=== PATIENT | female | born 1955 | race Caucasian/White ===

== ENCOUNTER → 2017-12-23 08:51 | Outpatient (CLI) | payer MEDICARE, SELFPAY | PROVIDERS: PCP Nurse Practitioner Family; Visit Provider Surgery | DX: L98.9 Disorder of the skin and subcutaneous tissue, unspecified (principal) | CPT/HCPCS: 11402 ==

== ENCOUNTER → 2017-12-23 14:41 | Outpatient (REF) | payer MEDICARE, SELFPAY ==
--- NOTE | 2017-12-23 14:00 | SKI_PTH ---
PATIENT: JAQUI BERNARD LOC: [facility] U#:[id number] AGE/SX: 69/F ROOM: RE12/23/[address]: Sandra Alvarez MD : [id number] BED: DIS: SPEC #: [id number] RECD: 12/23/17 17:27 STATUS: JAMES JOHNSON #: [id number] LUIS CARLOS: 12/23/17 14:[address]: Sandra Alvarez DEPT: Surgical Specimen RECD BY: Sonia Chowdhury ENTERED: 12/23/17 17:28 SP TYPE: LEILA MA DR: Olimpia Taveras Tissues: 1 - SKIN BIOPSY(SHAVE/PUNCH) Procedures: SKIN LEVEL 4 Comments: [id number]
== END ==
LOC: LBN 14:41
PROVIDERS: PCP Nurse Practitioner Family; Visit Provider Surgery
DX: L82.1 Other seborrheic keratosis (principal)
CPT/HCPCS: 88305

== ENCOUNTER 2018-01-12 16:17 | Outpatient (REF) | payer MEDICARE, SELFPAY ==
[2018-01-12 21:03] LABS: Abs Immature Grans 0.04 k/cumm (0.0-0.09); Absolute Basophil Count 0.03 k/cumm (0.0-0.2); Absolute Eosinophil Count 0.12 k/cumm (0.0-0.7); Absolute Lymphocyte Count 1.24 k/cumm (1.2-3.4); Absolute Monocyte Count 0.88 k/cumm (0.11-0.7); Absolute Neutrophil Count 7.27 k/cumm (1.2-6.7); Basophils % 0.3; Eosinophils % 1.3; HCT 43.7 % (36.0-46.0); HGB 14.8 g/dL (12.0-15.5); Immature Grans % 0.4; Lymphocytes % 12.9; Mean Corp. HGB Concentration 33.9 g/dL (32.0-36.0); Mean Corpuscular Volume 103.3 fL (80-95); Mean Platelet Volume 11.9 fL (8.0-11.0); Monocytes % 9.2; Neutrophils % 75.9; Platelet Count 196 x1000/uL (130-400); RBC 4.23 m/cumm (4.00-5.20); RBC Distribution Width 13.5 % (11.7-14.6); White Blood Cell Count 9.58 k/cumm (4.4-10.8)
[2018-01-12 21:26] LABS: Iron 89 ug/dL (50-175); Total Iron Binding Capacity 307 ug/dL (250-450); Transferrin Sat 29 % (15-50)
[2018-01-12 21:37] LABS: Ferritin 85 ng/mL (8-388)
== END 2018-01-12 16:37 ==
LOC: NCHCN 16:17
PROVIDERS: PCP Nurse Practitioner Family; Visit Provider Nurse Practitioner Family
DX: G60.9 Hereditary and idiopathic neuropathy, unspecified (principal); M54.5 Low back pain; E61.1 Iron deficiency; E27.9 Disorder of adrenal gland, unspecified; R60.0 Localized edema; R53.83 Other fatigue; R42 Dizziness and giddiness; F17.200 Nicotine dependence, unspecified, uncomplicated
CPT/HCPCS: 82728; 83540; 83550; 85025

== ENCOUNTER 2018-02-09 15:29 | Outpatient (REF) | payer MEDICARE, SELFPAY ==
[2018-02-11 10:49] LABS: Syphilis Serology (RPR) Negative (Negative)
[2018-02-11 11:02] LABS: HSV Type 1 Ab, IgG Positive; HSV Type 2 Ab, IgG Negative; Varicella IgG Antibody Positive
[2018-02-11 12:19] LABS: HBs Antibody, Quant <3.1 mIU/mL; Hepatitis B Surface Ab Negative
[2018-02-11 12:35] LABS: Hepatitis A IgM Ab Negative (Negative)
[2018-02-11 13:32] LABS: Hepatitis B Surface Ag Negative (NEGAT)
[2018-02-11 13:41] LABS: HIV-1/2 Ag & Ab Screen Negative (NEGAT)
[2018-02-11 13:42] LABS: Hepatitis C Ab w Rflx HCV PCR Negative (NEGAT)
== END 2018-02-09 15:49 ==
LOC: NCHCN 15:29
PROVIDERS: PCP Nurse Practitioner Family; Visit Provider Nurse Practitioner Family
DX: R42 Dizziness and giddiness (principal); E27.9 Disorder of adrenal gland, unspecified; Z11.59 Encounter for screening for other viral diseases; Z11.4 Encounter for screening for human immunodeficiency virus [HIV]; Z01.84 Encounter for antibody response examination
CPT/HCPCS: 86706; 86787; 86803; 87340; 87389; 86592; 86695; 86696; 86709

== ENCOUNTER 2018-03-23 12:50 | Emergency (ER) | payer MEDICARE, SELFPAY ==
[2018-03-23 12:37] VITALS: BP 159/88; PULSE 73; RESP 18; TEMP 37.2; O2SAT 98
--- NOTE | 2018-03-23 13:01 | W.ED.GENAD ---
Discharge Plan Disposition Patient Disposition: HOME Condition: Stable Discharge Details Chief Complaint: Anxiety Clinical Impression: Hypertension, Chronic pain of lower extremity, bilateral Reason For Visit: estrada Primary Care Provider: Olimpia Taveras ED Provider: Yazmin Quesada Home Meds and New Rx's Prescriptions: Continue methylphenidate HCl [Ritalin SR] 20 MG tablet extended release 2 tab PO DAILY RF: 0 inhalational spacing device [Space Chamber Plus] 1 EACH spacer 1 ea Miscellaneous PRN Qty: 1 RF: 0 aspirin [Aspir-81] 81 MG tablet,delayed release (DR/EC) 81 mg PO DAILY Qty: 90 RF: 3 clonazepam 0.5 MG tablet,disintegrating 1 mg PO TID RF: 0 fluticasone [Flonase] 16 GM spray,suspension 2 spry NS BID Qty: 1 RF: 6 lactulose [Enulose] 10 GM/15 ML solution 15 ml PO daily prn Qty: 1 RF: 4 atorvastatin 40 MG tablet 40 mg PO DAILY RF: 0 fluticasone [Flovent HFA] 12 GM HFA aerosol inhaler 110 mcg Inhalation BID RF: 0 lisinopril 10 MG tablet 20 mg PO DAILY RF: 0 multivitamin 1 EACH capsule 1 cap PO DAILY RF: 0 naproxen sodium [Aleve] 220 MG tablet 220 mg PO PRN PRNRF: 0 omeprazole 40 MG capsule,delayed release(DR/EC) 40 mg PO DAILY RF: 0 topiramate 50 MG tablet 1 tab PO BID RF: 0 escitalopram oxalate [Lexapro] 20 MG tablet 20 mg PO DAILY RF: 0 potassium chloride 10 MEQ capsule, extended release 10 meq PO DAILY RF: 0 ferrous sulfate 325 MG tablet 325 mg PO DAILY RF: 0 albuterol sulfate [Ventolin HFA] 200 PUFF HFA aerosol inhaler 2 puff Inhalation Q6H PRN PRNRF: 0 mirtazapine [Remeron] 15 MG tablet 7.5 mg PO HS RF: 0 nystatin (bulk) 1 EACH powder 1 ea Miscellaneous DIRECTED PRNRF: 0 famotidine [Pepcid] 20 MG tablet 20 mg PO DAILY RF: 0 loratadine [Claritin Liqui-Gel] 10 MG capsule 2 tab PO DAILY AM RF: 0 magnesium oxide 500 mg Tablet 1,000 mg PO DAILY RF: 0 cholecalciferol (vitamin D3) 2,000 unit Capsule 2,000 unit PO DAILY RF: 0 peg 400-propylene glycol [Systane Gel] 0.4-0.3 % Drops,Gel 1 applic ophthalmic (eye) BID RF: 0 Discontinued naproxen sodium [Aleve] 220 MG capsule 220 mg PO BID RF: 0 Discharge Instructions Instructions: Chronic Pain (ED), Hypertension (ED) Additional Instructions: Please return immediately to the emergency department if you develop any new or worsening symptoms or if you become otherwise concerned. It is extremely important that you make an appointment to be seen by your primary care doctor within the next week in follow-up for this visit. Referrals: Olimpia Taveras [Primary Care Provider] - Discharge Data Discharge Date/Time-TO BE ENTERED AT DEPARTURE: 03/23/18 17:35 Medical Decision Making Christal Rogers is a 62-year-old woman with history of anxiety, bipolar, COPD, GERD, hypertension, obstructive sleep apnea presenting to the emergency department with a symptomatic high blood pressure from her PCPs office, also with chronic lower extremity pain, headache. On exam patient is well and nontoxic appearing. She has a nonfocal neuro exam. There is no abdominal tenderness. Benign cardiopulmonary exam. Hypertension improved in the emergency department spontaneously. Doubt hypertensive emergency at this point. Plan for EKG, screening labs. Exam/history not consistent with hypertensive encephalopathy or other acute intracranial process. Labs nondiagnostic. EKG with diffuse T wave inversions, unchanged from prior. Patient reporting multiple social issues including problem with housing. Plan for consult with care management. Lengthy discussion with patient regarding return to emergency department cautions and reports of outpatient follow-up with her PCP within a week. Patient is amenable to the plan. Medical Records Medical records reviewed: Yes I reviewed the patient's medical records. Lab Data Lab results reviewed: Yes I reviewed the patient's lab results. Laboratory Tests Range/Units 03/23/18 03/23/18 14:40 14:40 WBC (4.4-10.8) k/cumm 9.82 RBC (4.00-5.20) m/cumm 4.05 Hgb (12.0-15.5) g/dL 13.6 Hct (36.0-46.0) % 41.8 MCV (80-95) fL 103.2 H MCH (27.0-33.0) pg 33.6 H MCHC (32.0-36.0) g/dL 32.5 RDW (11.7-14.6) % 12.7 Plt Count (130-400) x1000/uL 218 MPV (8.0-11.0) fL 10.8 Immature Gran % 0.2 Neutrophils % 80.9 Lymphocytes % 12.5 Monocytes % 5.4 Eosinophils % 0.6 Basophils % 0.4 Absolute Neutrophils (1.2-6.7) k/cumm 7.94 H Absolute Lymphocytes (1.2-3.4) k/cumm 1.23 Absolute Monocytes (0.11-0.7) k/cumm 0.53 Absolute Eosinophils (0.0-0.7) k/cumm 0.06 Absolute Basophils (0.0-0.2) k/cumm 0.04 Sodium (136-145) mmol/L 145 Potassium (3.5-5.1) mmol/L 3.6 Chloride (98-107) mmol/L 111 H Carbon Dioxide (21.0-32.0) mmol/L 24.7 Anion Gap (3-11) mmol/L 9.3 BUN (7-18) mg/dL 10 Creatinine (0.55-1.02) mg/dL 0.93 Estimated GFR/1.73 m2 (mL/min/1.73m2) >= 60.00 Glucose (70-100) mg/dL 100 Calcium (8.5-10.1) mg/dL 9.2 Total Bilirubin (0.2-1.0) mg/dL 0.5 AST (15-37) U/L 21 ALT (12-78) U/L 36 Alkaline Phosphatase (46-116) U/L 74 Troponin I (0.00-0.06) ng/mL < 0.02 Total Protein (6.4-8.2) g/dL 6.7 Albumin (3.4-5.0) g/dL 4.1 ECG Data Attestation: I personally reviewed and interpreted this ECG (s) as follows: Interpretation: EKG shows normal sinus rhythm at 73 with 6 normal axis, diffuse T wave inversions present on prior 2017, no STEMI HPI General Mode of arrival: EMS. Date/Time Provider Initiated Documentation: 03/23/18 13:01. Limitations to Documentation: no limitations. Information obtained by: patient, RN notes reviewed and old records reviewed. HPI Narrative: Christal Rogers is a 62-year-old woman with history of COPD, GERD, hypertension, anxiety, sleep apnea, status post bilateral hip and bilateral knee replacements presenting to the emergency room with high blood pressure. Patient reports that she was seen today at her PCPs office for a regular well check. At that visit she was found to be hypertensive 190/100, and was sent to the emergency department for this. Patient reports that she had no acute complaints today. Patient reports that she has chronic pain in both hips and both knees after having them both replaced in the past. This is been going on for years. Patient also reports a history of chronic headaches, and today's experiencing what of her chronic headaches. It is not the worst headache of her life, and is same in quality, location, and severity as her typical headaches. She denies chest pain, abdominal pain, or back pain. No fevers, nausea/vomiting/diarrhea, rash, weakness, numbness, tingling, shortness of breath, cough. Related Data Home Medications Medication Instructions Recorded Confirmed aspirin [Aspir-81] 81 mg PO DAILY #90 tab-cap 02/09/14 03/23/18 inhalational spacing device [Space #1 02/09/14 Chamber Plus] methylphenidate HCl [Ritalin SR] 2 tab PO DAILY 02/09/14 03/23/18 clonazepam 1 mg PO TID tab-cap 07/13/14 03/23/18 fluticasone [Flonase] 2 spry NS BID #1 spray 07/20/14 03/23/18 lactulose [Enulose] 15 ml PO daily prn #1 bottle 07/20/14 03/23/18 multivitamin 1 cap PO DAILY 02/01/15 03/23/18 atorvastatin 40 mg PO DAILY tab-cap 06/27/16 03/23/18 fluticasone [Flovent HFA] 110 mcg INHALATION BID inhaler 06/27/16 03/23/18 naproxen sodium [Aleve] 220 mg PO PRN PRN 07/10/16 11/10/17 omeprazole 40 mg PO DAILY 07/10/16 03/23/18 topiramate 1 tab PO BID 07/10/16 03/23/18 escitalopram oxalate [Lexapro] 20 mg PO DAILY 03/27/17 11/24/17 ferrous sulfate 325 mg PO DAILY 03/27/17 03/23/18 potassium chloride 10 meq PO DAILY 03/27/17 03/23/18 famotidine [Pepcid] 20 mg PO DAILY 03/31/17 03/23/18 loratadine [Claritin Liqui-Gel] 2 tab PO DAILY AM 03/31/17 11/24/17 lisinopril 20 mg PO DAILY tab-cap 05/16/17 03/23/18 albuterol sulfate [Ventolin HFA] 2 puff INHALATION Q6H PRN PRN 11/04/17 03/23/18 mirtazapine [Remeron] 7.5 mg PO HS 11/04/17 11/04/17 nystatin (bulk) 1 ea MISCELLANEOUS DIRECTED PRN 11/04/17 03/23/18 cholecalciferol (vitamin D3) 2,000 unit PO DAILY 03/23/18 03/23/18 magnesium oxide 1,000 mg PO DAILY 03/23/18 03/23/18 peg 400-propylene glycol [Systane 1 applic OPHTHALMIC (EYE) BID 03/23/18 03/23/18 Gel] Allergies Allergy/AdvReac Type Severity Reaction Status Date / Time aripiprazole [From Abilify] Allergy Severe lethargic Unverified 03/23/18 14:28 mirtazapine [From Remeron] Allergy Severe Swelling/Ed Unverified 03/23/18 14:28 elen latex Allergy Intermediate Skin Rash Unverified 03/23/18 14:28 celecoxib [From Celebrex] AdvReac Intermediate feet Unverified 03/23/18 14:28 swelling duloxetine HCl AdvReac Intermediate leg Unverified 03/23/18 14:28 [From Cymbalta] swelling tiotropium AdvReac Intermediate chest pain Unverified 03/23/18 14:28 [From Spiriva with HandiHaler] General Stated Complaint: Anxiety MARILYNN: 3 Review of Systems Review of Systems Constitutional: denies fevers Eyes: denies eye pain ENT: denies facial pain, dental pain, sore throat Cardiovascular: denies chest pain, edema Respiratory: denies SOB, cough GI: denies abdominal pain, vomiting, diarrhea : denies flank pain MSK: denies back pain, neck pain, reports chronic hip and knee pain, unchanged Skin: denies rash Neuro: denies lightheadedness, weakness, reports chronic HAs Exam Narrative Exam Narrative: Constitutional: well and [id number], pleasant, conversing normally HENT: head atraumatic, normocephalic normal inspection, mucous membranes moist Eyes: conjunctiva normal, sclera normal, pupils 3mm b/l ERRLA, EOMI Neck: no stridor, normal ROM, trachea midline Chest: normal inspection Resp: normal work of breathing, LCTAB Cardio: normal rate, normal rhythm, no murmur appreciated GI: abdomen soft, non-tender, non-distended Back: normal inspection, no rash Skin: warm, dry, normal color, no rash Neuro: alert, not altered, health information specialist 2-12 intact, motor 5/5 throughout, normal tone Ext: no edema Psych: normal mood, normal affect, normal behavior Course Vital Signs Temperature 37.2 C 03/23/18 12:37 Pulse 73 03/23/18 12:37 Respiratory Rate 18 03/23/18 12:37 Blood Pressure 159/88 H 03/23/18 12:37 Pulse Oximetry 98 03/23/18 12:37 Temperature 37.2 C 03/23/18 12:37 Temperature Source Temporal Artery Scan 03/23/18 12:37 Pulse 73 03/23/18 12:37 Respiratory Rate 18 03/23/18 12:37 Respiratory Effort 03/23/18 12:43 Blood Pressure 159/88 H 03/23/18 12:37 Blood Pressure Position Sitting 03/23/18 12:37 Pulse Oximetry 98 03/23/18 12:37 Pain Level 10 03/23/18 12:37
[2018-03-23 14:21] VITALS: RESP 24
[2018-03-23 14:49] LABS: Abs Immature Grans 0.02 k/cumm (0.0-0.09); Absolute Basophil Count 0.04 k/cumm (0.0-0.2); Absolute Eosinophil Count 0.06 k/cumm (0.0-0.7); Absolute Lymphocyte Count 1.23 k/cumm (1.2-3.4); Absolute Monocyte Count 0.53 k/cumm (0.11-0.7); Absolute Neutrophil Count 7.94 k/cumm (1.2-6.7); Basophils % 0.4; Eosinophils % 0.6; HCT 41.8 % (36.0-46.0); HGB 13.6 g/dL (12.0-15.5); Immature Grans % 0.2; Lymphocytes % 12.5; Mean Corp. HGB Concentration 32.5 g/dL (32.0-36.0); Mean Corpuscular Hemoglobin 33.6 pg (27.0-33.0); Mean Corpuscular Volume 103.2 fL (80-95); Mean Platelet Volume 10.8 fL (8.0-11.0); Monocytes % 5.4; Neutrophils % 80.9; Platelet Count 218 x1000/uL (130-400); RBC 4.05 m/cumm (4.00-5.20); RBC Distribution Width 12.7 % (11.7-14.6); White Blood Cell Count 9.82 k/cumm (4.4-10.8)
[2018-03-23 15:11] LABS: ALT 36 U/L (12-78); AST 21 U/L (15-37); Albumin 4.1 g/dL (3.4-5.0); Alkaline Phosphatase 74 U/L (46-116); Anion Gap 9.3 mmol/L (3-11); BUN 10 mg/dL (7-18); Bilirubin, Total 0.5 mg/dL (0.2-1.0); CO2 24.7 mmol/L (21.0-32.0); CREATININE 0.93 mg/dL (0.55-1.02); Calcium 9.2 mg/dL (8.5-10.1); Chloride 111 mmol/L (98-107); Glucose 100 mg/dL (70-100); Potassium 3.6 mmol/L (3.5-5.1); Sodium 145 mmol/L (136-145); Total Protein 6.7 g/dL (6.4-8.2)
[2018-03-23 15:12] LABS: Troponin I < 0.02 ng/mL (0.00-0.06)
[2018-03-23 16:47] VITALS: BP 146/68; PULSE 96; RESP 18; TEMP 37.1; O2SAT 99
--- NOTE | 2018-03-23 17:28 | PDOC.ERCMPRO ---
- If Service Date Differs Date of service: 03/23/18 Time of Service: 17:28 Care Management Progress Note CM paged at 1630 with request to meet with Christal in the ER. Patient transfered to ER from PCPs office via EMS with reported HTN and anxiety. Christal is having difficulties with her living situation and her mental health providers. Christal has community supports through [facility] ([facility]) and [facility] [employer]. CM listened to Christal's concerns for an hour. CM will follow up with [facility] and [facility] in the morning. Christal would like to see Dr. Soria as opposed to the two therapists she is seeing through [facility]. CM will inquire into this issue as well and phone Christal following those calls. Christal's phone number is [phone]. - MH Services (Omit if N/A) Current MH Services: [facility]
[2018-03-23 17:34] VITALS: BP 146/68; PULSE 96; RESP 18; TEMP 37.1; O2SAT 99
--- NOTE | 2018-03-23 17:38 | CMPROGNOTE_ITS ---
- If Service Date Differs Date of service: 03/23/18 Time of Service: 17:28 Care Management Progress Note CM paged at 1630 with request to meet with Christal in the ER. Patient transfered to ER from PCPs office via EMS with reported HTN and anxiety. Christal is having difficulties with her living situation and her mental health providers. Christal has community supports through [email or web address] ([facility]) and [facility] [employer]. CM listened to Christal's concerns for an hour. CM will follow up with [facility] and [facility] in the morning. Christal would like to see Dr. Soria as opposed to the two therapists she is seeing through [facility]. CM will inquire into this issue as well and phone Christal following those calls. Christal's phone number is [phone]. - MH Services (Omit if N/A) Current MH Services: [facility]
== END 2018-03-23 17:35 | disposition home or self-care (01) ==
PROVIDERS: Emergency Provider Student in an Organized Health Care Education/Training Program; PCP Nurse Practitioner Family
DX: I10 Essential (primary) hypertension (principal); M79.604 Pain in right leg; M79.605 Pain in left leg; G89.29 Other chronic pain; Z96.643 Presence of artificial hip joint, bilateral; Z96.653 Presence of artificial knee joint, bilateral; R51 Headache; Z59.9 Problem related to housing and economic circumstances, unspecified; Z63.8 Other specified problems related to primary support group; J44.9 Chronic obstructive pulmonary disease, unspecified; F17.210 Nicotine dependence, cigarettes, uncomplicated
CPT/HCPCS: 36415; 80053; 93005; 99283; 84484; 85025; 93010

== ENCOUNTER 2018-03-27 17:55 | Emergency (ER) | payer MEDICARE, SELFPAY ==
[2018-03-27] VITALS (39 sets, daily range): BP systolic 97–147; BP diastolic 38–98; PULSE 58–81; RESP 11–24; TEMP 37.2; O2SAT 94–99
--- NOTE | 2018-03-27 18:13 | DI.RAD_ITS ---
SYMPTOM/DIAGNOSIS: SHORTNESS OF BREATH, R/O ACUTE DISEASE PA AND LATERAL CHEST: Comparison is made with 31 Mar 2017. The heart is enlarged, unchanged. The lungs are well inflated and clear. No infiltrate or effusion is seen. There is no evidence of pneumothorax or pulmonary edema. IMPRESSION: No acute abnormality.
[2018-03-27] MEDS: LORazepam 2 MG/ML VIAL 1 MG IVP (18:30)
[2018-03-27 18:32] LABS: Abs Immature Grans 0.03 k/cumm (0.0-0.09); Absolute Basophil Count 0.03 k/cumm (0.0-0.2); Absolute Eosinophil Count 0.09 k/cumm (0.0-0.7); Absolute Lymphocyte Count 1.39 k/cumm (1.2-3.4); Absolute Monocyte Count 0.72 k/cumm (0.11-0.7); Absolute Neutrophil Count 7.99 k/cumm (1.2-6.7); Basophils % 0.3; Eosinophils % 0.9; HCT 42.9 % (36.0-46.0); HGB 13.9 g/dL (12.0-15.5); Immature Grans % 0.3; Lymphocytes % 13.6; Mean Corp. HGB Concentration 32.4 g/dL (32.0-36.0); Mean Corpuscular Hemoglobin 33.2 pg (27.0-33.0); Mean Corpuscular Volume 102.4 fL (80-95); Neutrophils % 77.9; Platelet Count 224 x1000/uL (130-400); RBC 4.19 m/cumm (4.00-5.20); RBC Distribution Width 12.9 % (11.7-14.6); White Blood Cell Count 10.25 k/cumm (4.4-10.8)
--- NOTE | 2018-03-27 18:39 | ED.GENADUL_ITS ---
Discharge Plan Disposition Patient Disposition: HOME Condition: Good Discharge Details Chief Complaint: Chest Pain Clinical Impression: Dyspnea, Headache, Anxiety, Neck pain Primary Care Provider: Olimpia Taveras ED Provider: Elpidio Yao [place] Meds and New Rx's Prescriptions: Continue methylphenidate HCl [Ritalin SR] 20 MG tablet extended release 2 tab PO DAILY RF: 0 inhalational spacing device [Space Chamber Plus] 1 EACH spacer 1 ea Miscellaneous PRN Qty: 1 RF: 0 aspirin [Aspir-81] 81 MG tablet,delayed release (DR/EC) 81 mg PO DAILY Qty: 90 RF: 3 clonazepam 0.5 MG tablet,disintegrating 1 mg PO TID RF: 0 fluticasone [Flonase] 16 GM spray,suspension 2 spry NS BID Qty: 1 RF: 6 lactulose [Enulose] 10 GM/15 ML solution 15 ml PO daily prn Qty: 1 RF: 4 atorvastatin 40 MG tablet 40 mg PO DAILY RF: 0 fluticasone [Flovent HFA] 12 GM HFA aerosol inhaler 110 mcg Inhalation BID RF: 0 lisinopril 10 MG tablet 20 mg PO DAILY RF: 0 multivitamin 1 EACH capsule 1 cap PO DAILY RF: 0 naproxen sodium [Aleve] 220 MG tablet 220 mg PO PRN PRNRF: 0 omeprazole 40 MG capsule,delayed release(DR/EC) 40 mg PO DAILY RF: 0 topiramate 50 MG tablet 1 tab PO BID RF: 0 escitalopram oxalate [Lexapro] 20 MG tablet 20 mg PO DAILY RF: 0 potassium chloride 10 MEQ capsule, extended release 10 meq PO DAILY RF: 0 ferrous sulfate 325 MG tablet 325 mg PO DAILY RF: 0 albuterol sulfate [Ventolin HFA] 200 PUFF HFA aerosol inhaler 2 puff Inhalation Q6H PRN PRNRF: 0 mirtazapine [Remeron] 15 MG tablet 7.5 mg PO HS RF: 0 nystatin (bulk) 1 EACH powder 1 ea Miscellaneous DIRECTED PRNRF: 0 famotidine [Pepcid] 20 MG tablet 20 mg PO DAILY RF: 0 loratadine [Claritin Liqui-Gel] 10 MG capsule 2 tab PO DAILY AM RF: 0 magnesium oxide 500 mg Tablet 1,000 mg PO DAILY RF: 0 cholecalciferol (vitamin D3) 2,000 unit Capsule 2,000 unit PO DAILY RF: 0 peg 400-propylene glycol [Systane Gel] 0.4-0.3 % Drops,Gel 1 applic ophthalmic (eye) BID RF: 0 Discharge Instructions Instructions: Dyspnea (ED), Anxiety (ED), General Headache (ED) Additional Instructions: Consider decreasing your clonazepam to twice daily. Call your primary care doctor for follow-up appointment for reevaluation. Return immediately to the emergency department with any worsening or new concerning symptoms. We will have care management return call/follow up with you Friday. Referrals: Care Management [Provider Group] Olimpia Taveras [Primary Care Provider] - Discharge Data Discharge Date/Time-TO BE ENTERED AT DEPARTURE: 03/27/18 23:13 Discharge Physician: Oly Kang Medical Decision Making <Oly Kang DO - Last Filed: 03/27/18 20:24> 62-year-old female with history of hypertension, anxiety, bipolar, OCD, PTSD who presents with headache, neck pain, clenching her jaw, and shortness of breath. Patient was seen here 3 days ago for similar complaint and sent here by PCP for symptomatic hypertension and had EKG and labs which were unremarkable and she was discharged home. Patient her blood pressure at [facility] tonight which was 198/96 and she became nervous and short of breath and came to the ED. She is also decreased her clonazepam from 1 mg 3 times daily to 0.5 mg 3 times daily 1 week ago. She has also recently stopped her Ritalin over the past few days. EKG notes a rate of 67, sinus, T wave inversion in 1, 2, 3, aVF, V3 through V6 which is been seen in previous EKG. No acute ST elevation. QTc 405. QRS 100. Patient appears very anxious, tearful, and irritated and anxious with asking questions. It is possible that her symptoms earlier this week and today are due to her recent decrease in clonazepam causing anxiety. Due to patient's age and history of hypertension, will check a CT head, cardiac workup including labs and chest x-ray and give a dose of Ativan. 1953 -- Labs reviewed and unremarkable. WBC, Hgb, electrolytes, creatinine and troponin within normal limits. CXR and CT head negative. Patient appears much more calm and relaxed, she denies any chest pain or left arm pain. She still complaining of mild bilateral neck pain and headache. Patient states she has not eaten anything today. Headache and jaw pain appears likely consistent with tension as she has been clenching her jaw as well as possibly due to stress and anxiety as she becomes tearful and anxious when she talks about it. She is overwhelmed with any questioning of her meds. No fever or meningeal signs. Will give a dose of Toradol, tray of food, and plan for second troponin at 930pm 1999 -- case endorsed to Dr. Yao to f/u on pt response to toradol and second troponin. If second troponin negative, and patient remained stable, okay for discharge home to follow-up with her primary care doctor. HPI <Oly Kang DO - Last Filed: 03/27/18 20:24> General Mode of arrival: ambulatory . Date/Time Provider Initiated Documentation: 03/27/18 18:09 . Limitations to Documentation: no limitations . Information obtained by: patient . HPI Narrative: Patient is a 8-year-old female with a history of anxiety, bipolar disorder, OCD and PTSD who presents for headache and neck pain for the past 3 days, and shortness of breath tonight that occurred after [facility]. Pt admits to L arm pain as well tonight but denies any chest pain. She denies fever cough. Patient states he has recently been taken off her Remeron, Lexapro and Latuda due to making her OCD and PTSD worse. Patient states her primary care doctor also decreased her Klonopin from 1 mg 3 times daily to 0.5 mg 3 times daily because the patient thought it was causing nausea. Patient was seen here 3 days ago for symptomatic hypertension with headache and had screening labs and EKG which were unremarkable and she was discharged home. Related Data Home Medications Medication Instructions Recorded Confirmed aspirin [Aspir-81] 81 mg PO DAILY #90 tab-cap 02/09/14 03/23/18 inhalational spacing device [Space #1 02/09/14 Chamber Plus] methylphenidate HCl [Ritalin SR] 2 tab PO DAILY 02/09/14 03/23/18 clonazepam 1 mg PO TID tab-cap 07/13/14 03/23/18 fluticasone [Flonase] 2 spry NS BID #1 spray 07/20/14 03/23/18 lactulose [Enulose] 15 ml PO daily prn #1 bottle 07/20/14 03/23/18 multivitamin 1 cap PO DAILY 02/01/15 03/23/18 atorvastatin 40 mg PO DAILY tab-cap 06/27/16 03/23/18 fluticasone [Flovent HFA] 110 mcg INHALATION BID inhaler 06/27/16 03/23/18 naproxen sodium [Aleve] 220 mg PO PRN PRN 07/10/16 11/10/17 omeprazole 40 mg PO DAILY 07/10/16 03/23/18 topiramate 1 tab PO BID 07/10/16 03/23/18 escitalopram oxalate [Lexapro] 20 mg PO DAILY 03/27/17 11/24/17 ferrous sulfate 325 mg PO DAILY 03/27/17 03/23/18 potassium chloride 10 meq PO DAILY 03/27/17 03/23/18 famotidine [Pepcid] 20 mg PO DAILY 03/31/17 03/23/18 loratadine [Claritin Liqui-Gel] 2 tab PO DAILY AM 03/31/17 11/24/17 lisinopril 20 mg PO DAILY tab-cap 05/16/17 03/23/18 albuterol sulfate [Ventolin HFA] 2 puff INHALATION Q6H PRN PRN 11/04/17 03/23/18 mirtazapine [Remeron] 7.5 mg PO HS 11/04/17 11/04/17 nystatin (bulk) 1 ea MISCELLANEOUS DIRECTED PRN 11/04/17 03/23/18 cholecalciferol (vitamin D3) 2,000 unit PO DAILY 03/23/18 03/23/18 magnesium oxide 1,000 mg PO DAILY 03/23/18 03/23/18 peg 400-propylene glycol [Systane 1 applic OPHTHALMIC (EYE) BID 03/23/18 Gel] Allergies Allergy/AdvReac Type Severity Reaction Status Date / Time aripiprazole [From Abilify] Allergy Severe lethargic Unverified 03/23/18 14:28 mirtazapine [From Remeron] Allergy Severe Swelling/Ed Unverified 03/23/18 14:28 elen latex Allergy Intermediate Skin Rash Unverified 03/23/18 14:28 celecoxib [From Celebrex] AdvReac Intermediate feet Unverified 03/23/18 14:28 swelling duloxetine HCl AdvReac Intermediate leg Unverified 03/23/18 14:28 [From Cymbalta] swelling tiotropium AdvReac Intermediate chest pain Unverified 03/23/18 14:28 [From Spiriva with HandiHaler] General MARILYNN: 3 Review of Systems <Oly Kang DO - Last Filed: 03/27/18 20:24> Review of Systems All systems reviewed & are unremarkable except as noted in HPI and below Constitutional Denies chills, Denies excessive sweating, Denies fatigue, Denies fever(s), Reports headache(s), Denies weakness and Denies weight loss Eyes Reports system reviewed and no additional complaints, except as docu and Denies blurry vision ENT Denies vertigo, Denies dizziness, Denies otalgia, Reports headache(s), Denies nasal congestion, Denies sore throat and Denies throat swelling Cardiovascular Denies chest pain, Denies syncope, Denies rapid heart rate and Reports dyspnea Respiratory Reports dyspnea Gastrointestinal Denies abdominal pain, Denies diarrhea and Denies vomiting Genitourinary Denies hematuria, Denies dysuria and Denies flank pain Musculoskeletal Denies back pain and Denies joint swelling Integumentary/Breasts Denies lesions and Denies rash Neurologic Denies behavioral changes, Denies confusion, Denies vertigo, Denies dizziness, Denies syncope, Reports headache(s) and Denies weakness Psychiatric Denies behavioral changes, Denies confusion and Denies depression Endocrine Denies excessive sweating and Denies fatigue Hematologic/Lymphatic Denies easy bruising and Denies lymphadenopathy Allergic/Immunologic Denies throat swelling Exam <Oly Kang DO - Last Filed: 03/27/18 20:24> Const General: cooperative and healthy appearing Orientation: alert and awake [facility] Head: normal to inspection Ears: hearing grossly normal bilaterally and external ears normal General nose exam: external nose normal Face and sinus: normal facial exam Mouth: oral mucosae normal Eyes General: appearance normal, both eyes and all related structures Eyelids: eyelids normal Pupils: PERRL EOM: EOM intact bilaterally Neck Neck: normal visual inspection Lymphatic: no lymphadenopathy noted Chest Chest: normal inspection of the chest Resp Effort & Inspection: normal respiratory effort and able to speak in complete sentences Auscultation: clear to auscultation bilaterally Cardio Rate: regular rate Rhythm: regular rhythm GI Inspection: normal to inspection Palpation: soft, not firm, no guarding, no hepatosplenomegaly, no masses and nontender Auscultation: normal bowel sounds Skin General skin exam: no rashes or lesions noted Neuro General: alert, awake and oriented x3 Cranial Nerves: CN's II-XI intact bilaterally Cognition: normal cognition Speech: speech normal Gait: normal gait Motor: muscle tone normal throughout and strength 5/5 throughout Sensory Exam: no sensory deficits noted Extrem General: normal to inspection, full ROM, normal capillary refill and no edema Psych Appearance: grossly normal Mental Status: mental status grossly normal Speech and Movement: speech and movement normal Affect: normal affect Thought Process: normal Sign Out <Oly Kang DO - Last Filed: 03/27/18 20:24> Sign Out Data: Sign Out Comment: f/u on second troponin and pt response to toradol for headache and neck pain Last updated by Oly Kang DO at 03/27/18 20:22 Post-Handoff Eval: Patient signed out to me pending second troponin and EKG. She had been seen here on Friday and again tonight for elevated blood pressures, shortness of breath. She had some arm discomfort tonight. Patient did eat and got medications and feels better. Dr. Kang felt most likely this is related to anxiety. Patient tells me she is working on finding a new psychiatric provider because she does not like being on all the medications. Her second troponin is negative. Repeat EKG is unchanged and is sinus rhythm at a rate of 63 with T wave inversions that have been present previously. Patient asking that care management follows up with her as they were supposed to after her Friday visit. I will place her back on care management list. Refer to primary care for further medication management while waiting for new psychiatric provider.
--- NOTE | 2018-03-27 18:40 | DI.CT_ITS ---
SYMPTOM/DIAGNOSIS: HEADACHE, R/O ACUTE DISEASE NONCONTRAST HEAD CT: No intracranial hemorrhage, mass or infarct is seen. There is no evidence of skull fracture. The ventricles are normal in size. No sinus or mastoid air cell opacification seen. IMPRESSION: Negative head CT.
[2018-03-27 18:52] LABS: ALT 37 U/L (12-78); AST 17 U/L (15-37); Albumin 4.3 g/dL (3.4-5.0); Alkaline Phosphatase 73 U/L (46-116); BUN 15 mg/dL (7-18); Bilirubin, Total 0.4 mg/dL (0.2-1.0); CREATININE 0.85 mg/dL (0.55-1.02); Calcium 9.4 mg/dL (8.5-10.1); Chloride 108 mmol/L (98-107); Glucose 97 mg/dL (70-100); Potassium 3.6 mmol/L (3.5-5.1); Sodium 145 mmol/L (136-145)
[2018-03-27 18:54] LABS: Troponin I < 0.02 ng/mL (0.00-0.06)
--- NOTE | 2018-03-27 18:58 | DI.VRAD_ITS ---
EXAM: CT Head Without Intravenous Contrast EXAM DATE/TIME: 03/27/2018 6:41 PM CLINICAL HISTORY: 62 years old, female; Signs and symptoms; Altered mental status/memory loss; Confusion or disorientation; Patient HX: Anxiety TECHNIQUE: Axial computed tomography images of the head/brain without intravenous contrast. Coronal and sagittal reformatted images were created and reviewed. COMPARISON: No relevant prior studies available. FINDINGS: No evidence of hemorrhage. No mass effect. No acute intracranial abnormality. IMPRESSION: No evidence of acute intracranial process. Dictated and Authenticated by: Shiraz Melvin MD. Ordering:MEGHA LIPSCOMB MD
--- NOTE | 2018-03-27 18:59 | DI.VRAD_ITS ---
EXAM: XR Chest, 2 Views EXAM DATE/TIME: 03/27/2018 6:14 PM CLINICAL HISTORY: 62 years old, female; Signs and symptoms; Shortness of breath TECHNIQUE: XR of the chest, 2 views. COMPARISON: CR CHEST 2 VIEWS PA,LAT 03/31/2017 4:41 PM FINDINGS: The lung dickens are clear bilaterally. No focal pulmonary consolidation is present. The cardiac silhouette is within normal limits. The costophrenic angles are sharp. The bony structures appear unremarkable with prior surgical fixation of lower cervical spine. IMPRESSION: No evidence of acute cardiopulmonary disease. Dictated and Authenticated by: Shiraz Melvin MD. Ordering:MEGHA LIPSCOMB MD
[2018-03-27] MEDS: Ketorolac 30 MG/ML VIAL IVP (20:10)
[2018-03-27 21:57] LABS: Troponin I < 0.02 ng/mL (0.00-0.06)
--- NOTE | 2018-03-27 23:19 | NUR.NOTE ---
Nursing Note: Pt seems exasperated upon review of discharge instructions. Pt repeatedly asking if this is all. This scribe asked if there was something else that she needed or if she had any questions. She stated no. Did inquire if she should continue taking her methylphenidate as she has not been taking for a few days. Clarified this with MD and as she has an appt with PCP on Friday it was determined she could go a couple more days this weekend without the dosing and clarify with the prescribing doctor.
--- NOTE | 2018-03-28 13:10 | PDOC.ERCMPRO ---
- If Service Date Differs Date of service: 03/28/18 Time of Service: 13:10 Care Management Progress Note CM placed follow up call to Christal to follow up recent ED visit. Christal states she continues to be very anxious and she is afraid she is going to stroke out. She feels that her anxiety escalation is due to recent medications changes by Sheila Mcmillan APRN provider and her loss of her medical marijuana card. She states she met with a CM earlier in the week that was going to try and get her in with and transition from [facility]. CM explained to patient that sometimes has a long waiting list and that she should continue to stay with [facility] until a transition can be coordinated. Christal does have supports through [facility], and chronic home health aide caregiver at [facility]. CM to fax a request for wrap around services and team meeting to [employer] and follow up with for transition of mental health services is appropriate. CM was encouraged to outreach her community support including whiting can worker through [facility]. CM provided contact information for [facility] crisis and request that Christal call if she is feeling anxious or needs support related to her mental health. Christal should continue to be referred back to [facility] for ongoing mental health needs, until other provider is identified. Christal agrees with the plan. CM provided update of contact to the ED.
--- NOTE | 2018-03-28 13:22 | CMPROGNOTE_ITS ---
- If Service Date Differs Date of service: 03/28/18 Time of Service: 13:10 Care Management Progress Note CM placed follow up call to Christal to follow up recent ED visit. Christal states she continues to be very anxious and she is afraid she is going to stroke out. She feels that her anxiety escalation is due to recent medications changes by Sheila Mcmillan APRN provider and her loss of her medical marijuana card. She states she met with a CM earlier in the week that was going to try and get her in with and transition from [facility]. CM explained to patient that sometimes has a long waiting list and that she should continue to stay with [facility] until a transition can be coordinated. 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 CM to fax a request for wrap around services and team meeting to [facility] [employer] and follow up with for transition of mental health services is appropriate. CM was encouraged to outreach her community support including rollway worker through [facility]. CM provided contact information for [facility] crisis and request that Christal call if she is feeling anxious or needs support related to her mental health. Christal should continue to be referred back to [facility] for ongoing mental health needs, until other provider is identified. Christal agrees with the plan. CM provided update of contact to the ED.
== END 2018-03-27 23:13 | disposition home or self-care (01) ==
PROVIDERS: Physician Assistant; Emergency Provider Emergency Medicine; PCP Nurse Practitioner Family
DX: F41.9 Anxiety disorder, unspecified (principal); R51 Headache; M54.2 Cervicalgia; R00.0 Tachycardia, unspecified; J44.9 Chronic obstructive pulmonary disease, unspecified; F17.210 Nicotine dependence, cigarettes, uncomplicated; I10 Essential (primary) hypertension
CPT/HCPCS: 36415; 80053; 93005; 96374; 96375; 99285; 70450; 71046; 83735; 84484; 85025; 93010; J1885; J2060

== ENCOUNTER 2018-04-08 02:39 | Outpatient (CLI) | payer MEDICARE, SELFPAY | END 2018-04-08 02:59 | PROVIDERS: PCP Nurse Practitioner Family | DX: R13.11 Dysphagia, oral phase (principal); K08.409 Partial loss of teeth, unspecified cause, unspecified class | CPT/HCPCS: 92610; G8996 ==

== ENCOUNTER 2018-04-22 00:37 | Outpatient (CLI) | payer MEDICARE, SELFPAY ==
--- NOTE | 2018-04-22 11:20 | DI.RAD_ITS ---
SYMPTOMS/DIAGNOSIS: TORITO KNEE PAIN, M25.569, LT HIP PAIN, M25.552, RT HIP PAIN, M25.551 LEFT KNEE: The patient is status post TKR. The prosthesis in good positioning and surrounding bone intact. There is no evidence of a fracture or dislocation. I could not entirely exclude a small joint effusion. RIGHT KNEE: The prosthesis is intact and surrounding bone well maintained. There is no evidence of a superimposed fracture or dislocation. The knee is not flexed and I could not exclude a small joint effusion. BILATERAL HIPS: The patient is status post bilateral THR. The prostheses in good position and surrounding bone intact. There has been no interval change when compared with images dating back to 12/21/13 and on today's study there is no evidence of a fracture or dislocation.
== END 2018-04-22 00:57 ==
PROVIDERS: PCP Nurse Practitioner Family; Visit Provider Nurse Practitioner Family
DX: M25.561 Pain in right knee (principal); M25.562 Pain in left knee; M25.552 Pain in left hip; M25.551 Pain in right hip; Z96.653 Presence of artificial knee joint, bilateral; Z96.643 Presence of artificial hip joint, bilateral
CPT/HCPCS: 73521; 73562

== ENCOUNTER → 2018-05-13 12:58 | Outpatient (BNVA) | payer MEDICARE, SELFPAY | PROVIDERS: PCP Nurse Practitioner Family; Referring Provider Nurse Practitioner Family; Visit Provider Student in an Organized Health Care Education/Training Program | DX: M23.8X2 Other internal derangements of left knee (principal); M25.561 Pain in right knee; M25.562 Pain in left knee; G89.29 Other chronic pain; Z96.653 Presence of artificial knee joint, bilateral; Z96.643 Presence of artificial hip joint, bilateral; M70.61 Trochanteric bursitis, right hip; Z59.9 Problem related to housing and economic circumstances, unspecified; J44.9 Chronic obstructive pulmonary disease, unspecified; I10 Essential (primary) hypertension; F17.210 Nicotine dependence, cigarettes, uncomplicated | CPT/HCPCS: 20610; 99204; 99215; L1820; J1040 ==

== ENCOUNTER 2018-06-03 05:18 | Outpatient (CLI) | payer MEDICARE, SELFPAY ==
--- NOTE | 2018-06-03 11:04 | DI.MAMMO_ITS ---
SYMPTOM/DIAGNOSIS: SCREENING, Z12.39 MAMMOGRAMS: Mammograms were interpreted according to the usual protocol including computer analysis with CAD system, tomosynthesis and C view imaging. The breasts are of moderate density with fairly symmetrical distribution of fibroglandular tissue. No dominant mass or clumped microcalcification is identified in either breast. Current examination is compared with the previous examinations including June 2016 and there has been no gross interval change in appearance in comparison with the previous studies. CONCLUSION: No specific evidence of malignancy at this time. Routine screening examinations are suggested at yearly intervals in this age group according to the ACS/ACR guidelines. Category 1, breast density category B. MQSA ASSESSMENT OF FINDINGS: Negative. Category 1. Patient will receive a letter notifying them of these results. BI-RADS category B. There are scattered areas of fibroglandular density.
== END 2018-06-03 05:38 ==
PROVIDERS: PCP Nurse Practitioner Family; Visit Provider Nurse Practitioner Family
DX: Z12.31 Encounter for screening mammogram for malignant neoplasm of breast (principal)
CPT/HCPCS: 77063; 77067

== ENCOUNTER 2018-06-12 00:47 | Outpatient (CLI) | payer MEDICARE, SELFPAY ==
[2018-06-12 10:16] LABS: CREATININE 1.09 mg/dL (0.55-1.02)
[2018-06-12] MEDS: Omnipaque 350 MG/ML 100 ML BTL IJ (10:31)
--- NOTE | 2018-06-12 10:50 | DI.CT_ITS ---
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 Images obtained through the lung bases are unremarkable. No renal or adrenal calcification identified. The previously noted peripheral nodular enhancing hepatic lesions including caudate lobe lesion measuring up to about 8.5 cm in diameter appear unchanged in comparison with previous examination of 03/31/17. No new hepatic or splenic mass identified. No biliary dilatation and gallbladder is CT normal. The pancreas appears normal. A small right renal cyst is again noted. The right adrenal is unremarkable in appearance. The left adrenal contains two rounded masses, on transaxial imaging these measure respectively about 31 x 21 mm in diameter and about 14 x 14 mm in diameter and unchanged in size and appearance in comparison with previous examination of 03/31/17. No abdominal adenopathy seen. CONCLUSION: Stable appearance of presumably benign adrenal and hepatic lesions since 03/31/17.
== END 2018-06-12 01:07 ==
PROVIDERS: PCP Nurse Practitioner Family; Visit Provider Internal Medicine Endocrinology, Diabetes & Metabolism
DX: D35.02 Benign neoplasm of left adrenal gland (principal); K76.9 Liver disease, unspecified; Z13.89 Encounter for screening for other disorder
CPT/HCPCS: 36415; 74170; 82565; J3490

== ENCOUNTER 2018-06-18 12:44 | Outpatient (REF) | payer MEDICARE, SELFPAY ==
[2018-06-18 15:06] LABS: HCT 41.1 % (36.0-46.0); HGB 12.8 g/dL (12.0-15.5); Mean Corp. HGB Concentration 31.1 g/dL (32.0-36.0); Mean Corpuscular Hemoglobin 32.2 pg (27.0-33.0); Mean Corpuscular Volume 103.5 fL (80-95); Mean Platelet Volume 11.9 fL (8.0-11.0); Platelet Count 181 x1000/uL (130-400); RBC 3.97 m/cumm (4.00-5.20); RBC Distribution Width 12.4 % (11.7-14.6); White Blood Cell Count 8.05 k/cumm (4.4-10.8)
[2018-06-18 16:20] LABS: Vitamin B12 498 pg/mL (193-986)
[2018-06-19 13:17] LABS: IgA 107 mg/dL (85-499); Interpretation SEE COMMENTS; Tissue Transglutaminase IgA <1.2 U/mL (<4.0)
[2018-06-20 11:50] LABS: Thiamine (Vitamin B1), WB 110 nmol/L (70-180)
== END 2018-06-18 13:04 ==
LOC: NCHCN 12:44
PROVIDERS: PCP Nurse Practitioner Family; Visit Provider Nurse Practitioner Family
DX: N89.8 Other specified noninflammatory disorders of vagina (principal); D75.89 Other specified diseases of blood and blood-forming organs; R42 Dizziness and giddiness; K21.9 Gastro-esophageal reflux disease without esophagitis; G47.62 Sleep related leg cramps; J44.9 Chronic obstructive pulmonary disease, unspecified; K58.9 Irritable bowel syndrome, unspecified; G60.9 Hereditary and idiopathic neuropathy, unspecified
CPT/HCPCS: 36415; 82784; 83516; 85027; 82607; 84425; 87480; 87510; 87660

== ENCOUNTER → 2018-07-27 09:40 | Outpatient (BNVA) | payer MEDICARE, SELFPAY | PROVIDERS: PCP Nurse Practitioner Family; Referring Provider Nurse Practitioner Family; Visit Provider Student in an Organized Health Care Education/Training Program | DX: M70.61 Trochanteric bursitis, right hip (principal); M25.561 Pain in right knee; G89.29 Other chronic pain; Z96.653 Presence of artificial knee joint, bilateral; M70.51 Other bursitis of knee, right knee; M25.562 Pain in left knee | CPT/HCPCS: 20610; 99213; J1040 ==

== ENCOUNTER 2018-08-04 01:28 | Outpatient (CLI) | payer MEDICARE, SELFPAY ==
--- NOTE | 2018-08-04 13:04 | DI.CTLCSR_ITS ---
SYMPTOMS/DIAGNOSIS: TOBACCO ABUSE, F17.200, CIGARETTE SMOKER, F17.210, SCREENING FOR LUNG CA CHEST CT: A low dose screening chest CT was performed. There are no pleural-based or intrapulmonary areas of nodularity. Allowing for the absence of contrast material, there is no evidence of adenopathy. There is no pleural effusion. The heart is not enlarged. There is no pericardial effusion. There is nothing to suggest an aortic aneurysm. SUMMARY: No pulmonary nodules are identified. Follow-up surveillance with a repeat chest CT in 12 months is recommended. Lung-RAD Category: Category 1- Negative Lung-RAD Management of Findings: Continue annual LDCT screening in 12 months
== END 2018-08-04 01:48 ==
PROVIDERS: PCP Nurse Practitioner Family; Visit Provider Nurse Practitioner Family
DX: Z12.2 Encounter for screening for malignant neoplasm of respiratory organs (principal); F17.210 Nicotine dependence, cigarettes, uncomplicated
CPT/HCPCS: G0297

== ENCOUNTER 2018-08-13 00:28 | Outpatient (CLI) | payer MEDICARE, SELFPAY ==
--- NOTE | 2018-08-13 14:59 | DI.MRI_ITS ---
SYMPTOMS/DIAGNOSIS: LEFT HIP PAIN, M25.552, RIGHT HIP PAIN, M25.551, LOW BACK PAIN, M54.5 LUMBOSACRAL SPINE MRI: MRI examination of the lumbosacral spine was performed according to the usual protocol. There is a bilateral L5 spondylolysis with spondylolisthesis of L5 on S1 estimated at 25% of the vertebral width. There is bilateral neural foraminal narrowing at L5-S1. There is a moderate disc bulge without evidence of disc herniation. At L4-5, there is a disc bulge without evidence of focal disc herniation. Neural foramina appear fairly well maintained. Mild facet hypertrophy noted. At L3-4, there is a prominent disc bulge and prominence of the ligamentum flavum and facet articulations with resultant mild central canal spinal stenosis. No focal disc herniation. Neural foramina appear intact. At L2-3, there is prominence of the disc contour, left paracentral/left lateral suggesting mild disc herniation. This causes narrowing of the left lateral recess at this level. No definite neural impingement. At L1-2, there are no significant findings. The conus medullaris appears intact. CONCLUSION: 1. Mild central canal spinal stenosis at L4-5. 2. Bilateral neural foraminal narrowing secondary to spondylolysis/spondylolisthesis at L5-S1. 3. Mild left paracentral/left lateral disc herniation at L2-3.
== END 2018-08-13 00:48 ==
PROVIDERS: PCP Nurse Practitioner Family; Visit Provider Nurse Practitioner Family
DX: M25.552 Pain in left hip (principal); M25.551 Pain in right hip; M54.5 Low back pain; M48.061 Spinal stenosis, lumbar region without neurogenic claudication; M43.07 Spondylolysis, lumbosacral region; M43.17 Spondylolisthesis, lumbosacral region; M51.26 Other intervertebral disc displacement, lumbar region
CPT/HCPCS: 72148

== ENCOUNTER → 2018-08-18 09:18 | Outpatient (BNVA) | payer MEDICARE, SELFPAY | PROVIDERS: PCP Nurse Practitioner Family; Referring Provider Nurse Practitioner Family; Visit Provider Psychiatry & Neurology Neurology | DX: R51 Headache (principal); G43.009 Migraine without aura, not intractable, without status migrainosus; G44.40 Drug-induced headache, not elsewhere classified, not intractable; R20.2 Paresthesia of skin; R41.3 Other amnesia | CPT/HCPCS: 64405; 99205; 99215 ==

== ENCOUNTER → 2018-09-07 10:42 | Outpatient (BNVA) | payer MEDICARE, SELFPAY | PROVIDERS: PCP Nurse Practitioner Family; Referring Provider Nurse Practitioner Family; Visit Provider Student in an Organized Health Care Education/Training Program | DX: M70.61 Trochanteric bursitis, right hip (principal); M25.561 Pain in right knee; M25.562 Pain in left knee; G89.29 Other chronic pain; Z96.653 Presence of artificial knee joint, bilateral; M23.8X2 Other internal derangements of left knee; M43.17 Spondylolisthesis, lumbosacral region | CPT/HCPCS: 99213; 99214; L1812 ==

== ENCOUNTER 2018-09-21 11:50 | Outpatient (REF) | payer MEDICARE, SELFPAY ==
[2018-09-24 11:58] LABS: 6-monoacetylmorphine Not Detected ng/mL (Cutoff: 25); Amphetamines Negative ng/mL (Cutoff: 500); Barbiturates Negative ng/mL (Cutoff: 200); Benzodiazepines Negative ng/mL (Cutoff: 100); Buprenorphine Not Detected ng/mL (Cutoff: 5); Cocaine Negative ng/mL (Cutoff: 150); Codeine Not Detected ng/mL (Cutoff: 25); Comment Normal; Creatinine, U 28.3 mg/dL; Dihydrocodeine Not Detected ng/mL (Cutoff: 25); EDDP Not Detected ng/mL (Cutoff: 25); Fentanyl Not Detected ng/mL (Cutoff: 2); Hydrocodone Not Detected ng/mL (Cutoff: 25); Hydromorphone Not Detected ng/mL (Cutoff: 25); Hydromorphone-3-beta-glucuroni Not Detected ng/mL (Cutoff: 100); Meperidine Not Detected ng/mL (Cutoff: 25); Methadone Not Detected ng/mL (Cutoff: 25); Morphine Not Detected ng/mL (Cutoff: 25); N-desmethyltapentadol Not Detected ng/mL (Cutoff: 50); Naloxone Not Detected ng/mL (Cutoff: 25); Norbuprenorphine Not Detected ng/mL (Cutoff: 5); Norfentanyl Not Detected ng/mL (Cutoff: 2); Norhydrocodone Not Detected ng/mL (Cutoff: 25); Normeperidine Not Detected ng/mL (Cutoff: 25); Noroxycodone Not Detected ng/mL (Cutoff: 25); Noroxymorphone Not Detected ng/mL (Cutoff: 25); O-desmethyltramadol Not Detected ng/mL (Cutoff: 25); Phencyclidine Negative ng/mL (Cutoff: 25); Propoxyphene Not Detected ng/mL (Cutoff: 25); Specific Gravity 1.004; Tapentadol Not Detected ng/mL (Cutoff: 25); Tetrahydrocannabinol Negative ng/mL (Cutoff: 50); Tramadol Not Detected ng/mL (Cutoff: 25)
== END 2018-09-21 12:10 ==
LOC: LBN 11:50
PROVIDERS: PCP Nurse Practitioner Family; Visit Provider Nurse Practitioner Family
DX: Z79.899 Other long term (current) drug therapy (principal); M43.17 Spondylolisthesis, lumbosacral region; G89.29 Other chronic pain
CPT/HCPCS: 80307; 80364

== ENCOUNTER → 2018-09-30 08:01 | Outpatient (BNVA) | payer MEDICARE, SELFPAY | PROVIDERS: PCP Nurse Practitioner Family; Visit Provider Psychiatry & Neurology Neurology | DX: R51 Headache (principal); G43.109 Migraine with aura, not intractable, without status migrainosus; G44.40 Drug-induced headache, not elsewhere classified, not intractable; R41.3 Other amnesia; R20.2 Paresthesia of skin; G56.03 Carpal tunnel syndrome, bilateral upper limbs; G56.21 Lesion of ulnar nerve, right upper limb | CPT/HCPCS: 95911; 99214; L3908 ==

== ENCOUNTER 2018-10-05 16:34 | Outpatient (CLI) | payer MEDICARE, SELFPAY ==
[2018-10-05 17:37] LABS: Anion Gap 8.7 mmol/L (3-11); BUN 19 mg/dL (7-18); CO2 26.3 mmol/L (21.0-32.0); CREATININE 1.15 mg/dL (0.55-1.02); Calcium 9.5 mg/dL (8.5-10.1); Chloride 107 mmol/L (98-107); Estimated GFR 48.13 (mL/min/1.73m2); Glucose 142 mg/dL (70-100); Magnesium 2.1 mg/dL (1.8-2.4); Potassium 4.5 mmol/L (3.5-5.1); Sodium 142 mmol/L (136-145); TSH (W/Ref FT4) 1.62 uIU/mL (0.358-3.74)
[2018-10-05 17:39] LABS: Troponin I < 0.02 ng/mL (0.00-0.06)
== END 2018-10-05 16:54 ==
PROVIDERS: PCP Nurse Practitioner Family; Visit Provider Nurse Practitioner Family
DX: R07.89 Other chest pain (principal); G60.9 Hereditary and idiopathic neuropathy, unspecified; R60.0 Localized edema; I10 Essential (primary) hypertension; F17.200 Nicotine dependence, unspecified, uncomplicated; F41.8 Other specified anxiety disorders; G47.62 Sleep related leg cramps
CPT/HCPCS: 36415; 80048; 83735; 84443; 84484

== ENCOUNTER 2018-10-14 00:05 | Outpatient (CLI) | payer MEDICARE, SELFPAY ==
--- NOTE | 2018-10-14 08:45 | MERGEMPI_ITS ---
*[facility]* [address] [place] [address] Myocardial Perfusion Imaging - SPECT Regadenoson Date of study: 10/14/2018 *PATIENT PRESENTATION* Height: 160cm (63in) Blood Pressure: Weight: 75.9kg (167lb) BSA: 1.86m^2 Referring physician: Edouard Perez Ordering physician: Olimpia Taveras Aprn Impressions: Normal myocardial perfusion and contraction after pharmacological stress. Summary: 1. Myocardial perfusion imaging: No myocardial perfusion defects noted. 2. The calculated left ventricular ejection fraction after stress: 71%. LV global systolic function is normal. No left ventricular regional motion abnormality. 3. Stress ECG conclusions: The stress ECG is indeterminate due to baseline ST/T wave abnormality. 4. Baseline EC-3 mm T wave inversion in II, III, aVF, V3 to V6. 5. Imaging information: gated. Image quality reduced due to breast attenuation and subdiaphragmatic activity. Attenuation correction used. Indication: R07.89, Appropriate Use Criteria: M (May be appropriate). History: REASON FOR TESTING: DIFFICULT TO EVALUATE AT THIS TIME, BUT POSSIBLE ELEVATED BLOOD PRESSURE. PT CURRENTLY HAVING A PANIC ATTACK ON EVALUATION . 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 FAMILY HX:MOTHER- CAD, HYPERTENSION. FATHER- CAD, CARDIOMYOPATHY, HI. BROTHER-CARDIONYOPATHY, HYPERTENSION. SMOKING: CURRENT SMOKER 1/2 PPD, M45 YEARS PLUS. VAPES CBD. EXCERCISE: NO REGULAR EXCERCISE, TRIES TO WALK A LITTLE BIT EVERY DAY. Risk factors: Cholesterol: 225mg/dl. HDL: 131mg/dl. LDL: 52mg/dl. Triglycerides: 156mg/dl. ALLERGIES: LATEX,CITALOPRAM, ARIPIPRAZOLE, MIRTAZAPINE,CELECOXIB, DULOXETINE. MEDICATIONS: TOPIRIMATE 75 MG BID, SENNA-DOCUSATE 1 BID PRN,PSYLLIUM ORAL PACKET DAILY. POTASSIUM CHLORIDE 10 MEQ DAILY, OMEPRAZOLE 40 MG DAILY, NYSTATIN DIRECTED, NAPROXEN SOCIUM 220 MG BID, MULTIVITAMIN 1 DAILY, RITALIN SR 2 DAILY, MAGNESIUM OXIDE 500 MG DAILY, LORAZEPAM 1 MG TID, LISINOPRIL 40 MG DAILY, LACTULOSE 15 ML DAILY PRN, HYDROXIZINE HCL 25 MG TID. FLUTICASONE PROPIONATE 110 MCG 2 PUFFS BID, FLONASE 2 SPRAY BID, FAMOTIDINE 20 MF DAILY, DICLOFENAC 1% TOPICAL GEL QID, VIT D3 2,000 UNITS DAILY, BISACODYL 5 MG QOD, ATORVASTATIN 40 MG DAILY, ASPIRIN 81 MG DAILY, AMLODIPINE 2.5 MG DAILY, ALBUTEROL SULFATE 2 PUFFS Q6H RPN, ACETQAMINOPHEN 500 MG BID, SYSTANE GEL OPTHALMIC BID. Imaging Technique: Protocol: Regadenoson. Acquisition: Gated SPECT; 1 day - rest/stress. The patient was imaged in the supine position. Attenuation correction used. Isotope administration: - Rest. Tc[99m]-sestamibi. Dose: 9.5mCi. Injection time: 09:14 AM. Injection to stress time: 00:45. - Stress. Tc[99m]-sestamibi. Dose: 31.6mCi. Injection time: 11:30 AM. 1-2 min before end of exercise Baseline ECG: LAST EKG 03/25/18- SINUS RHYTHM, NONSPECIFIC ST DEPRESSION + EXCESSIVE T-ABNORMALITY. TODAY'S EKG- SINUS BRADYCARDIA, ABNORMAL T, WIDESPREAD. 2-3 mm T wave inversion in II, III, aVF, V3 to V6. Stress protocol: +--------+--+ + + !Stage !HR!BP (mmHg) !Comments ! +--------+--+ + + !Baseline!53!126/68 (87)! ! +--------+--+ + + !1 min !75!140/62 (88)!Inject Regadenoson.! +--------+--+ + + !3 min !82!128/60 (83)! ! +--------+--+ + + !6 min !79!120/60 (80)! ! +--------+--+ + + * Stress results: The rate-pressure product for the peak heart rate and blood pressure was 48347ra Hg/min. Stress ECG: PT VERY AGGITATED AND HAVING A PANIC ATTACK ON ARRIVAL. PT OFFERED THE OPPORTUNITY TO RESCHEDULE, BUT HAD INCREASED ANXIETY ABOUT RESCHEDULING, AND INSISTED THAT WE COMPLETE THIS TEST TODAY. LEXISCAN TESTING ENDED IN 6 MINS, 0 SECS, EFFECT OF MEDICATION NO LONGER PRESENT. MAX HR WAS 87, WITH A NORMAL BLOOD PRESSURE RESPONSE. ECTOPY: NONE NOTED. ANGINA: NO REPORTED CHEST PAIN OR PRESSURE. ISCHEMIA: NO ISCHEMIC CHANGES NOTED. The stress ECG is indeterminate due to baseline ST/T wave abnormality. Myocardial perfusion: Imaging information: gated. Image quality reduced due to breast attenuation and subdiaphragmatic activity. Left ventricular size is normal. No myocardial perfusion defects noted. Ventricular Function (Wall Motion): The calculated left ventricular ejection fraction after stress: 71%. LV global systolic function is normal. No left ventricular regional motion abnormality. Study data: Edouard Perez MD supervised and was readily available during the procedure. This study was interpreted by [facility]. Study status: Routine. Consent: The risks, benefits, and alternatives to the procedure were explained to the patient and informed consent was obtained. Procedure: Initial setup. A baseline ECG was recorded. Surface ECG leads and manual cuff blood pressure measurements were monitored. Heart sounds: Normal. Lung sounds: Normal. Regadenoson stress test. Stress testing was performed, with regadenoson by intravenous bolus, for a total dose of 0.4mgover 10.00sec, followed by a 5ml saline flush. The infusion was terminated due to per protocol. The patient was unable to exercise due to deconditioning and or frailty. Study completion: All catheters inserted during the procedure were removed. The patient tolerated the procedure well and was discharged from the lab. Discharge: The patient left the laboratory in stable condition. Birthdate: Patient birthdate: 1955. Sex: Gender: female. Study date: Study date: 10/14/2018. Study time: 00:01 AM. Signature Documentation: - The imaging portion of this study was interpreted by Nuclear Manager Winter Edouard Perez MD. - The Stress ECG portion of this study was interpreted by Edouard Perez MD. Electronically signed by Edouard Perez 10/14/2018 13:55
[2018-10-14] MEDS: Regadenoson 0.4 MG/5 ML SYR IVP (11:49)
== END 2018-10-14 00:25 ==
PROVIDERS: PCP Nurse Practitioner Family; Visit Provider Nurse Practitioner Family
DX: R07.89 Other chest pain (principal); R94.30 Abnormal result of cardiovascular function study, unspecified
CPT/HCPCS: 78452; 93016; 93018; 93017; 93225; J2785

== ENCOUNTER 2018-10-14 10:26 | Outpatient (CLI) | payer MEDICARE, SELFPAY | END 2018-10-14 10:46 | PROVIDERS: PCP Nurse Practitioner Family; Visit Provider Nurse Practitioner Family | DX: R07.89 Other chest pain (principal); I49.1 Atrial premature depolarization; I47.1 Supraventricular tachycardia | CPT/HCPCS: 93225 ==

== ENCOUNTER 2018-10-17 15:38 | Outpatient (CLI) | payer MEDICARE, SELFPAY ==
--- NOTE | 2018-10-19 12:43 | HOLTER_ITS ---
HOLTER MONITOR REPORT DATE OF DICTATION October 19, 2018 48-Hour Study Baseline rhythm sinus. Very frequent single PAC. Single burst SVT, 4 beat duration at 156 beats per minute. No atrial fibrillation. Rare single PVC. No VT. No significant bradycardia. SYMPTOMS Heavy breathing noted once during sinus rhythm, 109 beats per minute. Hot flash noted during sinus rhythm noted once during sinus rhythm, 68 beats per minute, deep T-wave inversions. Neck, ears, ringing noted once during sinus rhythm, 91 beats per minute. Heartburn noted once during sinus rhythm, 71 beats per minute, deep T-wave insertions. Average heart rate 71 beats per minute. Deep T wave inversions are noted intermittently throughout all leads, change from baseline. Unclear s ignificance. Consider ischemic evaluation if warranted. Jw Trinidad M.D. SLICK/divya T - 10/19/18
== END 2018-10-17 15:58 ==
PROVIDERS: PCP Nurse Practitioner Family; Visit Provider Nurse Practitioner Family
DX: R07.89 Other chest pain (principal); I49.1 Atrial premature depolarization; I47.1 Supraventricular tachycardia
CPT/HCPCS: 93226

== ENCOUNTER 2018-10-19 10:04 | Outpatient (CLI) | payer MEDICARE, SELFPAY | END 2018-10-19 10:24 | PROVIDERS: PCP Nurse Practitioner Family; Referring Provider Nurse Practitioner Family; Visit Provider Internal Medicine Interventional Cardiology | DX: R07.89 Other chest pain (principal); I49.1 Atrial premature depolarization; I47.1 Supraventricular tachycardia | CPT/HCPCS: 93227 ==

== ENCOUNTER 2018-10-20 09:45 | Outpatient (CLI) | payer MEDICARE, SELFPAY | END 2018-10-20 10:05 | PROVIDERS: PCP Nurse Practitioner Family; Visit Provider Psychiatry & Neurology Neurology | DX: R51 Headache (principal); G43.109 Migraine with aura, not intractable, without status migrainosus; G44.40 Drug-induced headache, not elsewhere classified, not intractable; R41.3 Other amnesia; G56.03 Carpal tunnel syndrome, bilateral upper limbs; G56.21 Lesion of ulnar nerve, right upper limb | CPT/HCPCS: 99213 ==

== ENCOUNTER → 2018-11-02 12:47 | Outpatient (BNVA) | payer MEDICARE, SELFPAY | PROVIDERS: PCP Nurse Practitioner Family; Referring Provider Nurse Practitioner Family; Visit Provider Student in an Organized Health Care Education/Training Program | DX: M75.81 Other shoulder lesions, right shoulder (principal); G56.21 Lesion of ulnar nerve, right upper limb; G56.03 Carpal tunnel syndrome, bilateral upper limbs; J44.9 Chronic obstructive pulmonary disease, unspecified; F17.210 Nicotine dependence, cigarettes, uncomplicated | CPT/HCPCS: 99214 ==

== ENCOUNTER 2018-11-16 10:24 | Outpatient (REF) | payer MEDICARE, SELFPAY ==
[2018-11-16 21:54] LABS: Abs Immature Grans 0.03 k/cumm (0.0-0.09); Absolute Basophil Count 0.03 k/cumm (0.0-0.2); Absolute Eosinophil Count 0.25 k/cumm (0.0-0.7); Absolute Lymphocyte Count 0.95 k/cumm (1.2-3.4); Absolute Monocyte Count 0.62 k/cumm (0.11-0.7); Absolute Neutrophil Count 6.44 k/cumm (1.2-6.7); Basophils % 0.4; HCT 40.7 % (36.0-46.0); HGB 13.8 g/dL (12.0-15.5); Immature Grans % 0.4; Lymphocytes % 11.4; Mean Corp. HGB Concentration 33.9 g/dL (32.0-36.0); Mean Corpuscular Hemoglobin 33.5 pg (27.0-33.0); Mean Corpuscular Volume 98.8 fL (80-95); Mean Platelet Volume 11.5 fL (8.0-11.0); Monocytes % 7.5; Neutrophils % 77.3; Platelet Count 224 x1000/uL (130-400); RBC 4.12 m/cumm (4.00-5.20); RBC Distribution Width 13.1 % (11.7-14.6); White Blood Cell Count 8.32 k/cumm (4.4-10.8)
[2018-11-16 22:01] LABS: Anion Gap 7.1 mmol/L (3-11); BUN 26 mg/dL (7-18); CO2 26.9 mmol/L (21.0-32.0); CREATININE 1.03 mg/dL (0.55-1.02); Calcium 9.5 mg/dL (8.5-10.1); Chloride 109 mmol/L (98-107); Estimated GFR 54.66 (mL/min/1.73m2); Glucose 88 mg/dL (70-100); Potassium 4.9 mmol/L (3.5-5.1); Sodium 143 mmol/L (136-145)
[2018-11-16 23:02] LABS: Hemoglobin A1C 5.6 % (4.5-6.2)
== END 2018-11-16 10:44 ==
LOC: NCHCN 10:24
PROVIDERS: PCP Nurse Practitioner Family; Visit Provider Specialist/Technologist Athletic Trainer
DX: R73.9 Hyperglycemia, unspecified (principal); I10 Essential (primary) hypertension; Z01.818 Encounter for other preprocedural examination; D75.89 Other specified diseases of blood and blood-forming organs
CPT/HCPCS: 80048; 83036; 85025

== ENCOUNTER 2018-11-26 09:55 | Outpatient (CLI) | payer MEDICARE, SELFPAY | END 2018-11-26 10:15 | PROVIDERS: PCP Nurse Practitioner Family; Visit Provider Student in an Organized Health Care Education/Training Program | DX: Z01.818 Encounter for other preprocedural examination (principal) ==

== ENCOUNTER 2018-12-01 07:53 | Day surgery (SDC) | payer MEDICARE, SELFPAY ==
[2018-11-26 10:15] VITALS: BP 111/67; PULSE 67; TEMP 37; O2SAT 99
[2018-12-01] VITALS (7 sets, daily range): BP systolic 124–152; BP diastolic 46–98; PULSE 68–79; RESP 14–23; TEMP 36.5–36.7; O2SAT 94–98
[2018-12-01] MEDS: Lactated Ringers 1,000 ML 80 ML IV (08:50)
[2018-12-01] MEDS: ceFAZolin 2 GM/50 ML BAG IVPB (10:55)
--- NOTE | 2018-12-01 11:13 | ANES_ITS ---
Date of service: 12/01/18 Time of Service: 09:40 Anesthesia Note Report Anesthesia Note: Went to complete preoperative assessment and anesthesia consent with patient. During brief interaction, patient verbalized hopelessness and does not feel she has quality of life nor a support system. A huddle between S[facility], [facility] disability case manager, and Dr. Spencer was held to address patient?s said concerns. A collective consensus was made to move forward with the surgery. It was felt in patient?s best interest to change anesthesia providers. Please see child care center administrator note.
--- NOTE | 2018-12-01 11:36 | PDOC.MHCN_ITS ---
Date of service: 12/01/18 Time of Service: 10:30 Mental Health Crisis Note Presenting Issue How did you arrive at the ED and why did you come: Client in day surgery for scheduled procedure. Precipitating Factors Client expressed SI to hospital staff and presented in an agitated state. Disposition BEHAVIOR: Client was in hospital bed, agitated but remained calm. EYE CONTACT: normal MOOD: anxious AFFECT: nervous APPETITE: N/A SLEEP(trouble falling/staying asleep: N/A Plan Hospital staff elected to proceed with surgery (as client preferred) so long as she could remain calm and have a rational discussion with staff and CEMENTING MACHINE OPERATOR outpatient case manager prior. Client claimed she never made comments about being better off or that the hospital would kill her with anesthesia. Stated she wanted to move forward with the surgery today and that her anxiety would always be present and was, in fact, improved. Signature Clinician's Name/Title: Rigo Dee BA CEMENTING MACHINE OPERATOR Instructional Systems Specialist
[2018-12-01] MEDS: Bupivacaine 0.5% Pres-Free 30 ML VIAL (11:43)
[2018-12-01] MEDS: methylPREDNISolone ACETATE 80 MG/ML VIAL (11:43)
--- NOTE | 2018-12-01 11:54 | W.PM.DSUDISC ---
Discharge Plan Disposition Patient Disposition: HOME W/HOME HEALTH SERVICE Condition: Improving Discharge Details Reason For Visit: R Cubital Tunnel Decompression, R ECTR Attending Provider: Jose Spencer Primary Care Provider: Olimpia Taveras Home Meds and New Rx's Prescriptions: New hydromorphone 2 mg tablet 2 mg PO Q6H PRN (Reason: pain) Qty: 12 RF: 0 Continued diclofenac sodium 1 % gel 4 gm TP QID Qty: 100 RF: 3 bisacodyl 5 mg tablet 5 mg PO .Every Other Day RF: 0 hydroxyzine HCl 25 mg tablet 50 mg PO TID RF: 0 amlodipine [Norvasc] 2.5 mg tablet 2.5 mg PO DAILY RF: 0 lorazepam 1 mg tablet 1 mg PO TID RF: 0 sennosides-docusate sodium [Senna with Docusate Sodium] 8.6-50 mg tablet 1 tab PO BID PRNRF: 0 topiramate 50 mg tablet 50 mg PO BID RF: 0 methylphenidate HCl [Ritalin SR] 20 MG tablet extended release 2 tab PO DAILY RF: 0 (DME) Space Chamber Plus 1 EACH spacer 1 ea Miscellaneous PRN Qty: 1 RF: 0 aspirin [Aspir-81] 81 MG tablet,delayed release (DR/EC) 81 mg PO DAILY Qty: 90 RF: 3 fluticasone propionate [Flonase] 16 GM spray,suspension 2 spry NS BID Qty: 1 RF: 6 lactulose [Enulose] 10 GM/15 ML solution 15 ml PO daily prn Qty: 1 RF: 4 atorvastatin 40 MG tablet 40 mg PO DAILY RF: 0 lisinopril 40 mg tablet 40 mg PO DAILY RF: 0 Flovent HFA 110 mcg/actuation HFA aerosol inhaler 2 puff Inhalation BID RF: 0 multivitamin 1 EACH capsule 1 cap PO DAILY RF: 0 omeprazole 40 MG capsule,delayed release(DR/EC) 40 mg PO DAILY RF: 0 potassium chloride 10 MEQ capsule, extended release 10 meq PO DAILY RF: 0 albuterol sulfate [Ventolin HFA] 200 PUFF HFA aerosol inhaler 2 puff Inhalation Q6H PRN PRNRF: 0 nystatin (bulk) 1 EACH powder 1 ea Miscellaneous DIRECTED PRNRF: 0 magnesium gluconate 27 mg magnesium (500 mg) Tablet 27 mg PO BID RF: 0 melatonin 10 mg Capsule 20 mg PO HS PRNRF: 0 naproxen sodium [Aleve] 220 mg tablet 220 mg PO BID Qty: 60 RF: 0 famotidine [Pepcid] 20 MG tablet 20 mg PO DAILY RF: 0 cholecalciferol (vitamin D3) 2,000 unit Capsule 2,000 unit PO DAILY RF: 0 Systane Gel 0.4-0.3 % Drops,Gel 1 applic ophthalmic (eye) BID RF: 0 Changed acetaminophen [Tylenol Extra Strength] 500 mg tablet 500 mg PO Q6H PRN PRNQty: 60 RF: 3 Discharge Instructions Additional Instructions: Activity: You should stay in the sling for the first 2 weeks. You may come out of the sling for gentle motion and hygiene but should largely remain in the sling to allow the incision site to heal. Gentle motion of the elbow, hand, wrist, and fingers is okay and encouraged after the first few days, but no repetitive activites nor heavy lifting. You may apply ice. Medications: - You should take Tylenol and Naproxen around the clock. - You have been prescribed Hydromorphone for breakthrough pain. Dressings: - The initial surgical dressing should stay in place for 3 days. It may then be removed and kept clean and dry. You should cover with a light gauze dressing at the elbow and a bandaid at wrist. - You may shower after 3 days and get the wound wet. Follow-up: 12-14-18 Referrals: Jose Spencer MD [ [facility] STAFF PHYSICIAN] - Equipment/Supplies: Sling Activity:: Gentle motion of elbow and wrist Remove Dressings/Wound Care:: 72 hours Shower/Bathe:: 72 hours Diet:: As Tolerated Discharge Orders Discharge Orders: Discharge Order (Routine); Ordered 12/01/18 Ordered By: Jose Spencer DS: Diagnosis Discharge Diagnosis (1) Right rotator cuff tendinitis: Status: Acute (2) Cubital tunnel syndrome on right: Status: Acute (3) Carpal tunnel syndrome on both sides: Status: Acute
--- NOTE | 2018-12-01 14:22 | NUR.NOTE ---
12/01/18 - Following completion of DSU assessment and intake, Heather ANTONIO Castillo went into see pt. Heather returned to nursing station a few minutes later reporting that patient was upset at inquiry of previous anesthesia complications, patient was swearing at her and had made concerning comments that made Heather concerned about her safety following the elective surgery. Patient's case filler, Mindi [employer], was contacted, but when unable to reach her, [facility] was contacted for guidance in assessing Christal?s mental health. Rigo, a bottle caser, from [facility] was instructed to come to Day Surgery unit. Sofiya Hdz from our care managers was contacted and made aware of the situation. Rigo Lauren, Sofiya Hdz, and I were present in room when discussing the concerns for safety and mental stability for proceeding with surgery. Pt vehemently denied making threats against her own safety and stated that she is prepared and wants to have surgery at this time ?stating I?ve prepared meals for this!? Contact was made with Pt?s bottle caser, Mindi, who did arrive for collaboration of care with Dr. Spencer, Sofiya Hdz, Anesthesia and myself. Nursing Note:
--- NOTE | 2018-12-01 23:31 | ROE_ITS ---
Date of service: 12/01/18 Time of Service: 13:31 Operative Note DATE OF PROCEDURE: 12/01/18 PRE-OP DIAGNOSIS: Right Carpal and Cubital Tunnel Syndrome, R RTC Tendinitis POST-OP DIAGNOSIS: same PROCEDURE: Right Endoscopic Carpal Tunnel Release, cubital tunnel release with anterior nerve transposition, and right shoulder subacromial injection SURGEON: Jose Spencer HEALTH OCCUPATIONS TEACHER: Pretty Lomeli ANESTHESIA: GETA ESTIMATED BLOOD LOSS: 5 PATHOLOGY: none sent TOURNIQUET TIME: 30 COMPLICATIONS: None Patient was transported to: same day Patient's condition: stable Indications: I have seen Christal in clinic for symptoms of carpal tunnel syndrome, cubital tunnel syndrome, and rotator cuff tendinitis. The numbness, tingling, and pain limited function, worse at the elbow. Clinical exam findings [with nerve conduction tests ]confirmed the diagnosis of carpal and cubital tunnel syndrome. Nonoperative measures such as bracing, time, activity modifi cations had been tried but disability and pain persisted. I discussed carpal tunnel release with the patient. I reviewed the risks of the procedure to include, but not limited to, bleeding, infection, pain, stiffness, incomplete release, damage to nerves or vessels, persistent numbness, recurrence. Despite these risks, the patient elected to proceed. She also has rotator cuff tendinitis which has been treated conservatively. I offered injection in the office but she preferred to have this done while she was under anesthesia for the other procedures. Findings: There was previous carpal tunnel surgery with a reconstituted transverse carpal ligament. This was dilated and released successfully with the endoscopic with increased space within the tunnel. The antebrachial fascia was released proximally freeing the median nerve at the wrist. At the level of the elbow, the ulnar nerve was quite tight. This was most tight at Toney's fasc ia. A complete release of the ulnar nerve was performed and it was moved anteriorly in a subcutaneous fashion. Procedure Description: Christal was greeted in the preoperative holding area where the correct side was identified and marked. The consent was reviewed with the patient and signed. The history and physical was updated. All questions were answered. Christal was taken back to the operating room. The patient was placed into the supine position on the operating room table with the right arm on an arm board. A nonsterile tourniquet was placed high onto the arm. All bony prominences were well padded. Prophylactic antibiotics in the form of cefazolin were administered. The right arm was then prepped with Chloraprep and draped in a s tandard fashion with stockinette and extremity drape. A timeout to confirm correct identity, side and site, procedure, allergies, anesthesia, and medical concerns was performed. The surgical site was marked in the volar wrist creases in line with the radial border of the fourth ray. This area was anesthetized with approximately 6cc of 1% Lidocaine. The limb was then exsanguinated with an Esmarch. The skin was incised with a 15 blade, approximately 1cm. The skin only was cut and the deeper tissue was dissected bluntly with a tenotomy scissor, avoiding passing nerve and venous structures. The fascia was penetrated and opened bluntly. A two-prong skin hook was placed under this proximal fascial edge. A series of hamate finders were used to identify and dilate the carpal tunnel. Synovial elevator was used to free synovial attachments to the underside of the transverse carpal ligament. My thumb was kept in the palm to david the distal extent of the carpal tunnel and correctly position the hand. The Microaire endoscope was inserted without difficulty and without resistance. Excellent visualization showed horizontally running fibers but they were less distinct than the [place] transverse carpal ligament. The distal extent of the tissue was visualized and the end of the scope palpated with the thumb. The blade was elevated and withdrawn from distal to proximal. The TCL was split into two flaps. The endoscope was reinserted to confirm complete release and any remnant tissue was incised. The scope was withdrawn and the proximal aspect of the carpal tunnel was grossly inspected and appeared release with the median nerve visible. The antebrachial fascia at the level of the wrist was then freed from the overlying skin and then the underlying median nerve with blunt dissection. This was transected longitudinally for about 3cm proximal to the wrist incision. The wound was then irrigated with easy flow of irrigant distally and proximally. The incision was closed with a single 4-0 Nylon suture. The wound was dressed with Xeroform, Gauze, Kerlix and Marvin. Our attention was then turned to the right elbow. The medial epicondyle was marked on the skin. The proposed surgical incision site was injected with 0.5% bupivacaine with epinephrine. A curvilinear incision was made overlying the course of the ulnar nerve. This was taken out sharply through the skin and subtendinous tissue. Any branches of the medial and brachial nerve was protected. The ulnar nerve was identified and its sheath was incised. The nerve was noted to be quite tight through the arcade of [place] and Toney's ligament. Therefore, I started just distal to the medial epicondyle. I was able to expose the nerve in this location. Using a [place] to protect the nerve I released Toney's fascia through the arcade of [place]. A vessel loop was placed around the ulnar nerve. This allowed manipulation of the nerve and dissection was performed proximally and distally. The median intermuscular septum was quite tight and hitting the edge of the nerve and therefore a portion of this was resected. The nerve is released well into the forearm, proximal a 12 cm proximal to the medial epicondyle. The distal release was taken all the way to the first branch of the ulnar nerve into the flexor carpi ulnaris. The muscle fascia of the flexor carpi ulnaris was released sufficiently. A small flap of fascial tissue from the flexor pronator mass was then elevated based off the far medial aspect of the medial epicondyle. The nerve was then moved anteriorly. There were no notable adhesions or connections keeping the nerve from moving anteriorly nor was there any impingement after it was moved. While being held in this position the fascial flap was sewn into the deep layer of the skin at the level previously marked for the medial epicondyle. This was secured with two #2-0 Vicryl sutures. This then released and the nerve was inspected in its anterior position. There is no notable compression of the nerve in any other location. The nerve appeared to be free without any adhesions. The wound was then irrigated. The deep tissues were closed with a 3-0 Vicryl. The skin was closed with a 4-0 nylon. Wound is dressed with Xeroform, 4 x 4's, Kerlix and Marvin. The tourniquet was released Blood flow returned easily to all digits with capillary refill less than 2 seconds. The right shoulder was then injected with an anterior approach to the subacromial space. The anterior aspect the shoulder was prepped with ChloraPrep. Finding the anterior edge of the acromial follow the acromion down and injected within the subacromial space easily injecting 5 cc of 0.5% bupivacaine and 80 mg of Depo-Medrol. A Band-Aid was applied. The patient tolerated the procedure well and was returned to the Same Day Surgery area in a stable condition suffering no known complication.
== END 2018-12-01 14:02 | disposition home health service (06) ==
PROVIDERS: PCP Nurse Practitioner Family; Visit Provider Student in an Organized Health Care Education/Training Program
PROC: (CPT 64718; principal; 2018-12-01 10:00)
PROC: 01N54ZZ Release Median Nerve, Percutaneous Endoscopic Approach (ICD-10-PCS; CPT 29848; 2018-12-01 10:00)
PROC: (CPT 64718; 2018-12-01 10:00)
DX: M75.81 Other shoulder lesions, right shoulder (principal); G56.21 Lesion of ulnar nerve, right upper limb; G56.03 Carpal tunnel syndrome, bilateral upper limbs; R45.851 Suicidal ideations; M25.551 Pain in right hip
CPT/HCPCS: 64718; 29848; 20610; J0131; J0690; J1040; J1885; J3010; L3650

== ENCOUNTER → 2018-12-14 13:14 | Outpatient (BNVA) | payer MEDICARE, SELFPAY | PROVIDERS: PCP Nurse Practitioner Family; Referring Provider Nurse Practitioner Family; Visit Provider Student in an Organized Health Care Education/Training Program | DX: Z47.89 Encounter for other orthopedic aftercare (principal); G56.21 Lesion of ulnar nerve, right upper limb; M75.81 Other shoulder lesions, right shoulder; Z98.890 Other specified postprocedural states; I10 Essential (primary) hypertension; J44.9 Chronic obstructive pulmonary disease, unspecified ==

== ENCOUNTER 2018-12-26 19:01 | Emergency (ER) | payer MEDICARE, SELFPAY ==
[2018-12-26] VITALS (31 sets, daily range): BP systolic 125–145; BP diastolic 63–81; PULSE 61–86; RESP 10–31; TEMP 37.1; O2SAT 94–100
--- NOTE | 2018-12-26 19:05 | NUR.NOTE ---
Nursing Note: chest pain 12/12 starting at 1830 over left breast described as pressure. EMS gave 2 nitro which relieved the pain EMS also gave 325 nitro
[2018-12-26 19:23] LABS: Abs Immature Grans 0.03 k/cumm (0.0-0.09); Absolute Basophil Count 0.02 k/cumm (0.0-0.2); Absolute Eosinophil Count 0.05 k/cumm (0.0-0.7); Absolute Lymphocyte Count 1.42 k/cumm (1.2-3.4); Absolute Monocyte Count 0.71 k/cumm (0.11-0.7); Absolute Neutrophil Count 7.19 k/cumm (1.2-6.7); Basophils % 0.2; Eosinophils % 0.5; HCT 39.8 % (36.0-46.0); Immature Grans % 0.3; Lymphocytes % 15.1; Mean Corp. HGB Concentration 32.7 g/dL (32.0-36.0); Mean Corpuscular Hemoglobin 32.7 pg (27.0-33.0); Mean Platelet Volume 10.2 fL (8.0-11.0); Monocytes % 7.5; Neutrophils % 76.4; Platelet Count 233 x1000/uL (130-400); RBC 3.98 m/cumm (4.00-5.20); RBC Distribution Width 12.8 % (11.7-14.6); White Blood Cell Count 9.42 k/cumm (4.4-10.8)
--- NOTE | 2018-12-26 19:26 | W.ED.GENAD ---
Discharge Plan Disposition Patient Disposition: HOME Condition: Good Discharge Details Chief Complaint: Chest Pain Clinical Impression: Chest pressure, Anxiety Primary Care Provider: Olimpia Taveras ED Provider: Elpidio Yao [place] Meds and New Rx's Prescriptions: Continued diclofenac sodium 1 % gel 4 gm TP QID Qty: 100 RF: 3 bisacodyl 5 mg tablet 5 mg PO .Every Other Day RF: 0 hydroxyzine HCl 25 mg tablet 50 mg PO TID RF: 0 amlodipine [Norvasc] 2.5 mg tablet 2.5 mg PO DAILY RF: 0 lorazepam 1 mg tablet 1 mg PO TID RF: 0 sennosides-docusate sodium [Senna with Docusate Sodium] 8.6-50 mg tablet 1 tab PO BID PRNRF: 0 topiramate 50 mg tablet 50 mg PO BID RF: 0 hydromorphone 2 mg tablet 2 mg PO Q6H MDD 8mg PRN (Reason: pain) Qty: 10 RF: 0 methylphenidate HCl [Ritalin SR] 20 MG tablet extended release 2 tab PO DAILY RF: 0 (DME) Space Chamber Plus 1 EACH spacer 1 ea Miscellaneous PRN Qty: 1 RF: 0 aspirin [Aspir-81] 81 MG tablet,delayed release (DR/EC) 81 mg PO DAILY Qty: 90 RF: 3 fluticasone propionate [Flonase] 16 GM spray,suspension 2 spry NS BID Qty: 1 RF: 6 lactulose [Enulose] 10 GM/15 ML solution 15 ml PO daily prn Qty: 1 RF: 4 atorvastatin 40 MG tablet 40 mg PO DAILY RF: 0 lisinopril 40 mg tablet 40 mg PO DAILY RF: 0 Flovent HFA 110 mcg/actuation HFA aerosol inhaler 2 puff Inhalation BID RF: 0 multivitamin 1 EACH capsule 1 cap PO DAILY RF: 0 omeprazole 40 MG capsule,delayed release(DR/EC) 40 mg PO DAILY RF: 0 potassium chloride 10 MEQ capsule, extended release 10 meq PO DAILY RF: 0 albuterol sulfate [Ventolin HFA] 200 PUFF HFA aerosol inhaler 2 puff Inhalation Q6H PRN PRNRF: 0 nystatin (bulk) 1 EACH powder 1 ea Miscellaneous DIRECTED PRNRF: 0 magnesium gluconate 27 mg magnesium (500 mg) Tablet 27 mg PO BID RF: 0 melatonin 10 mg Capsule 20 mg PO HS PRNRF: 0 acetaminophen [Tylenol Extra Strength] 500 mg tablet 500 mg PO Q6H PRN PRNQty: 60 RF: 3 naproxen sodium [Aleve] 220 mg tablet 220 mg PO BID Qty: 60 RF: 0 famotidine [Pepcid] 20 MG tablet 20 mg PO DAILY RF: 0 cholecalciferol (vitamin D3) 2,000 unit Capsule 2,000 unit PO DAILY RF: 0 Systane Gel 0.4-0.3 % Drops,Gel 1 applic ophthalmic (eye) BID RF: 0 Discharge Instructions Additional Instructions: Your work-up for chest pain tonight does not suggest cardiac etiology. We have reviewed your previous notes from cardiology as well. We will have you follow-up with primary care next week. Would also recommend contacting your correctional case records supervisor to help with your anxiety. Return to ED for any new or worsening chest pain, increasing shortness of breath, feeling unsafe, other concerns. Referrals: [facility] [Provider Group] Olimpia Taveras [Primary Care Provider] - Medical Decision Making <Anthony Grande MD - Last Filed: 12/26/18 20:06> 63-year-old female presents via EMS. States she had a fairly rapid onset of anterior chest tightness that brought on a anxiety attack. The people she was with recommended that she seek evaluation and therefore EMS was called. Patient had resolving chest pain at the time of their arrival, did receive 2 sublingual nitroglycerin and oral aspirin with resolution of her discomfort. She arrives without chest pain but with ongoing anxiety and mild tearfulness. She is afebrile, well-appearing and with normal vital signs. Her exam is reassuring. She has been seen by cardiology in the past. She has had a perfusion study which is unremarkable and Holter monitor which revealed PACs. Patient a lunchroom monitor, IV access established, laboratories obtained, patient referred for EKG and chest x-ray. Her EKG does not reveal any acute ischemic changes. Initial laboratories reassuring. Will observe and obtain a 4-hour troponin. Patient be signed out to Dr. Yao pending final laboratories. Please see his note regarding details the patient's final disposition. ECG Data Attestation: I personally reviewed and interpreted this ECG (s) as follows: Interpretation: Normal sinus rhythm with a rate of 87, the QRS is narrow, there is nonspecific T wave flattening present. Review of previous EKG March 2018 reveals normal sinus rhythm with T wave inversions in the anterolateral and inferior leads <Elpidio Yao MD - Last Filed: 12/26/18 23:11> Patient signed out to me after she had presented with chest pressure and anxiety. She did receive nitroglycerin in route. However, her pressure was already resolving. She has had cardiology work-up in the past. While here she requested a breathing treatment that she typically uses at home. She also requested to talk to mental health worker from [facility]. 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 She just felt panicky and anxious and stated that just talking to somebody from [facility] would make her better. They did not need to come in to see her. She is much better after talking to them. Her repeat troponin is negative. Her repeat EKG is different than one done previously today. She has redeveloped her inverted T waves which have been present on all the other previous EKGs I have looked at. In reviewing the cardiology note she has had dynamic ST/T wave changes in the past with a negative stress test. Feel the patient is safe for discharge home. Her symptoms are most likely related to anxiety and panic. Will refer to primary care for follow-up as well as to her correctional case records supervisor for [facility]. Lab Data Lab results reviewed: Yes I reviewed the patient's lab results. ECG Data Attestation: I personally reviewed and interpreted this ECG (s) as follows: Prior ECG tracings: available for review Interpretation: Normal sinus rhythm at 68. Normal intervals and axis. Inverted T waves present in inferior lateral leads. These are unchanged from an EKG done in March 2018. It is different compared to EKG done earlier today which showed nonspecific ST changes but no inversions. HPI <Anthony Grande MD - Last Filed: 12/26/18 20:06> General Mode of arrival: EMS. Date/Time Provider Initiated Documentation: 12/26/18 19:06. Limitations to Documentation: no limitations. Information obtained by: patient and EMS. History of Present Illness 63 year old F presents to the emergency department with the chief complaint of Chest pain, improved, Quality is described as dull, and is localized to the chest. Patient reports no radiation. Patient started experiencing this minute(s) and it has been now resolved. No relieving factors improve symptom(s), No exacerbating factors reported . Patient notes other (She has a great deal of anxiety). Patient did receive the following treatments prior to arrival, other (Nitroglycerin x2, aspirin 325 by EMS) Related Data Home Medications Medication Instructions Recorded Confirmed Space Chamber Plus #1 02/09/14 12/26/18 aspirin [Aspir-81] 81 mg PO DAILY #90 tab-cap 02/09/14 12/26/18 methylphenidate HCl [Ritalin SR] 2 tab PO DAILY 02/09/14 12/26/18 fluticasone propionate [Flonase] 2 spry NS BID #1 spray 07/20/14 12/26/18 lactulose [Enulose] 15 ml PO daily prn #1 bottle 07/20/14 12/26/18 multivitamin 1 cap PO DAILY 02/01/15 12/26/18 atorvastatin 40 mg PO DAILY tab-cap 06/27/16 12/26/18 omeprazole 40 mg PO DAILY 07/10/16 12/26/18 potassium chloride 10 meq PO DAILY 03/27/17 12/26/18 famotidine [Pepcid] 20 mg PO DAILY 03/31/17 12/26/18 albuterol sulfate [Ventolin HFA] 2 puff INHALATION Q6H PRN PRN 11/04/17 12/26/18 nystatin (bulk) 1 ea MISCELLANEOUS DIRECTED PRN 11/04/17 12/26/18 Systane Gel 1 applic OPHTHALMIC (EYE) BID 03/23/18 12/26/18 cholecalciferol (vitamin D3) 2,000 unit PO DAILY 03/23/18 12/26/18 diclofenac sodium 1 % topical gel 4 gm TP QID #100 gm 07/27/18 12/26/18 sennosides 8.6 mg-docusate sodium 1 tab PO BID PRN 07/28/18 12/26/18 50 mg tablet topiramate 50 mg tablet 50 mg PO BID tab 07/28/18 12/26/18 amlodipine 2.5 mg tablet 2.5 mg PO DAILY 08/18/18 12/26/18 lisinopril 40 mg tablet 40 mg PO DAILY 08/18/18 12/26/18 bisacodyl 5 mg tablet 5 mg PO .Every Other Day tab 09/15/18 12/26/18 fluticasone propionate 110 2 puff INHALATION BID gm 09/15/18 12/26/18 mcg/actuation HFA aerosol inhaler hydroxyzine HCl 25 mg tablet 50 mg PO TID tab 09/21/18 12/26/18 lorazepam 1 mg tablet 1 mg PO TID tab 09/21/18 12/26/18 magnesium gluconate 27 mg PO BID 11/26/18 12/26/18 melatonin 20 mg PO HS PRN 11/26/18 12/26/18 acetaminophen [Tylenol Extra 500 mg PO Q6H PRN PRN #60 tab 12/01/18 12/26/18 Strength] naproxen sodium [Aleve] 220 mg PO BID #60 tab 12/01/18 12/26/18 hydromorphone 2 mg tablet 2 mg PO Q6H PRN #10 tab MDD 8mg 12/14/18 12/26/18 Previous Rx's Medication Instructions Recorded diclofenac sodium 1 % topical gel 4 gm TP QID #100 gm 07/27/18 acetaminophen [Tylenol Extra 500 mg PO Q6H PRN PRN #60 tab 12/01/18 Strength] naproxen sodium [Aleve] 220 mg PO BID #60 tab 12/01/18 hydromorphone 2 mg tablet 2 mg PO Q6H PRN #10 tab MDD 8mg 12/14/18 Allergies Allergy/AdvReac Type Severity Reaction Status Date / Time latex Allergy Intermediate Skin Rash Unverified 12/26/18 19:09 citalopram [From Celexa] Allergy Unknown Verified 12/26/18 19:09 aripiprazole [From Abilify] AdvReac Severe lethargic Unverified 12/26/18 19:09 mirtazapine [From Remeron] AdvReac Severe Swelling/Ed Unverified 12/26/18 19:09 elen celecoxib [From Celebrex] AdvReac Intermediate feet Unverified 12/26/18 19:09 swelling duloxetine HCl AdvReac Intermediate leg Unverified 12/26/18 19:09 [From Cymbalta] swelling tiotropium AdvReac Intermediate chest pain Unverified 12/26/18 19:09 [From Spiriva with HandiHaler] General Stated Complaint: Chest Pain MARILYNN: 2 Review of Systems <Anthony Grande MD - Last Filed: 12/26/18 20:06> Review of Systems Great deal of anxiety. Denies chest pain at the time of exam. No recent fall or trauma. 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 total replacement of both knee joints (Chronic) Complaints of memory disturbance (Chronic) COPD (chronic obstructive pulmonary disease) (Acute) Depression Depressive disorder (Acute) Dizziness (Resolved) Dysphagia (Resolved) Fatigue (Acute) Gastroesophageal reflux (Acute) Hepatic cyst (Acute) Hyperlipidemia Hypertension (Acute) Hypokalemia (Acute) IBS (irritable bowel syndrome) (Acute) Impacted cerumen, right ear (Acute) Low back pain (Acute) Macrocytosis (Acute) Migraine headache with aura (Chronic) Nocturnal leg cramps (Acute) Obesity Obstructive sleep apnea (Acute) Osteoarthritis (Acute) Pedal edema (Acute) Peripheral neuropathy (Chronic) Restless leg syndrome (Acute) Sensorineural hearing loss, bilateral (Acute 05/16/16) Smoker (Acute) Tobacco abuse (Chronic) Trochanteric bursitis of right hip (Acute) Tubular adenoma of colon (Acute 05/22/17) Urinary frequency (Acute) Vaginal itching (Resolved) Varicose veins of other specified sites (Chronic) Venous insufficiency (Acute) Vertigo (Resolved) Surgical History Arthroplasty of knee (12/02/07) Carpal tunnel syndrome (Acute) section Colonoscopy - MAC (05/22/17) Dilation and curettage (06/03/07) EGD - MAC (07/12/16) Extraction of cataract Ligation of fallopian tube (~1983) Open Carpal Tunnel release (~1997) Replacement of total knee joint S/P carpal tunnel release (Acute) S/P cervical spinal fusion (Acute) S/P lumbar spine operation (Acute) Total replacement of hip Family History Mother Diabetes CAD (coronary artery disease) Essential hypertension Emphysema lung CAD (coronary artery disease) of bypass graft Father CAD (coronary artery disease) Myocardial infarction Cardiomyopathy Brother Essential hypertension Cardiomyopathy Maternal Uncle Personal history of malignant neoplasm Social History Smoking/Tobacco Use Status: Current-Occasional Tobacco Type: cigarettes and e-cigarettes Alcohol Intake: never Drug use: Occasionally Substance use type: marijuana Household members: none current occupation: Disabled Do you feel safe at home: Yes Do you feel safe in your relationship?: No Exam <Anthony Grande MD - Last Filed: 12/26/18 20:06> Narrative Exam Narrative: GEN: awake, alert, oriented 3. Pleasant, well groomed, interactive, anxious. HEAD: Normocephalic, atraumatic ENT: Mucous membranes moist, oropharynx unremarkable, External ear exam unremarkable EYES: PERRL, EOMI NECK: Full ROM, no KENNY, no menigismus CHEST/RESP: Nontender, clear to auscultation bilateral, no wheeze/rhonchi/rales CARDIOVASCULAR: RRR, no murmur, rub rony. 2+ Rad pulse bilateral ABDOMEN: Soft, nontender, no mass. +Bowel sounds EXT: Full ROM, no edema, no rash Neuro: Grossly normal neurologic exam, conversant, interactive. Psych: Speech fluent, thoughts congruent, affect anxious Course <Anthony Grande MD - Last Filed: 12/26/18 20:06> Vital Signs Temperature 37.1 C 12/26/18 19:07 Pulse 86 12/26/18 19:07 Respiratory Rate 14 12/26/18 19:07 Blood Pressure 125/63 12/26/18 19:07 Pulse Oximetry 96 12/26/18 19:07 Temperature 37.1 C 12/26/18 19:07 Temperature Source Skin 12/26/18 19:07 Pulse 86 12/26/18 19:07 Respiratory Rate 14 12/26/18 19:07 Blood Pressure 125/63 12/26/18 19:07 Blood Pressure Position Sitting 12/26/18 19:07 Pulse Oximetry 96 12/26/18 19:07 Oxygen Delivery Method Room Air 12/26/18 19:07 Oxygen Flow Rate 0 12/26/18 19:07 Pain Level 3 12/26/18 19:07 Lab/Test Results Lab/Test Results: Laboratory Tests Range/Units 12/26/18 19:10 WBC (4.4-10.8) k/cumm 9.42 RBC (4.00-5.20) m/cumm 3.98 L Hgb (12.0-15.5) g/dL 13.0 Hct (36.0-46.0) % 39.8 MCV (80-95) fL 100.0 H MCH (27.0-33.0) pg 32.7 MCHC (32.0-36.0) g/dL 32.7 RDW (11.7-14.6) % 12.8 Plt Count (130-400) x1000/uL 233 MPV (8.0-11.0) fL 10.2 Immature Gran % 0.3 Neutrophils % 76.4 Lymphocytes % 15.1 Monocytes % 7.5 Eosinophils % 0.5 Basophils % 0.2 Absolute Neutrophils (1.2-6.7) k/cumm 7.19 H Absolute Lymphocytes (1.2-3.4) k/cumm 1.42 Absolute Monocytes (0.11-0.7) k/cumm 0.71 H Absolute Eosinophils (0.0-0.7) k/cumm 0.05 Absolute Basophils (0.0-0.2) k/cumm 0.02 Sign Out <Anthony Grande MD - Last Filed: 12/26/18 20:06> Sign Out Data: Sign Out Comment: followup cardiac workup Last updated by Anthony Grande MD at 12/26/18 20:08
[2018-12-26] MEDS: LORazepam 2 MG/ML VIAL 0.5 MG IVP (19:36)
[2018-12-26 19:40] LABS: ALT 33 U/L (14-59); AST 17 U/L (15-37); Albumin 4.1 g/dL (3.4-5.0); Alkaline Phosphatase 83 U/L (46-116); Anion Gap 11.1 mmol/L (3-11); BUN 14 mg/dL (7-18); Bilirubin, Total 0.3 mg/dL (0.2-1.0); CO2 22.9 mmol/L (21.0-32.0); CREATININE 1.26 mg/dL (0.55-1.02); Chloride 108 mmol/L (98-107); Estimated GFR 43.17 (mL/min/1.73m2); Glucose 112 mg/dL (70-100); Magnesium 1.8 mg/dL (1.8-2.4); Potassium 4.1 mmol/L (3.5-5.1); Sodium 142 mmol/L (136-145); Total Protein 6.8 g/dL (6.4-8.2)
[2018-12-26 19:48] LABS: Troponin I < 0.05 ng/mL (0.00-0.06)
--- NOTE | 2018-12-26 20:04 | NUR.NOTE ---
Nursing Note: 15 min post Ativan administration PT states symptoms greatly reduced
--- NOTE | 2018-12-26 20:25 | DI.RAD_ITS ---
SYMPTOM/DIAGNOSIS: CHEST PAIN PA AND LATERAL CHEST: Comparison is made with 27 Mar 2018. The heart size is at the upper limits of normal. The lungs appear clear. No infiltrate, effusion or pulmonary edema is seen. There are no thoracic compression fractures. There is no evidence of pneumothorax. There has been previous anterior fusion of the lower cervical spine. IMPRESSION: No acute abnormality.
--- NOTE | 2018-12-26 20:37 | DI.VRAD_ITS ---
EXAM: XR Chest, 2 Views EXAM DATE/TIME: 12/26/2018 7:27 PM CLINICAL HISTORY: 63 years old, female; On breathing; Patient HX: Chest pain. TECHNIQUE: Imaging protocol: XR of the chest, 2 views. COMPARISON: CR XR CHEST 2V PA LATERAL 03/27/2018 6:35 PM FINDINGS: Lungs: Unremarkable. No consolidation. Pleural space: Unremarkable. No pleural effusion. No pneumothorax. Heart/Mediastinum: Unremarkable. No cardiomegaly. Bones/joints: Lower cervical spine fusion. Degenerative changes in the spine. IMPRESSION: No acute finding. Dictated and Authenticated by: Bird Fernandes MD. Ordering:CHASE Cruz MD
[2018-12-26] MEDS: Albuterol 2.5 MG/3 ML INH SOLN VIAL UPD (21:50)
--- NOTE | 2018-12-26 22:48 | SUR.PHASEI ---
pt has been tearful at times and verbalized that she felt over whelmed and that she is having a pnick attack . she talked to mental health on the phone , she anticipates going home.
[2018-12-26 22:53] LABS: Troponin I < 0.05 ng/mL (0.00-0.06)
== END 2018-12-26 23:20 | disposition home or self-care (01) ==
PROVIDERS: Emergency Medicine; Emergency Provider Emergency Medicine; PCP Nurse Practitioner Family
DX: R07.89 Other chest pain (principal); F41.9 Anxiety disorder, unspecified; J44.9 Chronic obstructive pulmonary disease, unspecified; F17.200 Nicotine dependence, unspecified, uncomplicated; I10 Essential (primary) hypertension
CPT/HCPCS: 36415; 80053; 93005; 94640; 96374; 99285; 71046; 83735; 84484; 85025; 93010; 99284; J2060; J7613

== ENCOUNTER 2018-12-30 08:16 | Outpatient (CLI) | payer MEDICARE, SELFPAY | END 2018-12-30 08:36 | PROVIDERS: PCP Nurse Practitioner Family; Visit Provider Internal Medicine Interventional Cardiology | DX: R07.89 Other chest pain (principal); K21.9 Gastro-esophageal reflux disease without esophagitis; J44.9 Chronic obstructive pulmonary disease, unspecified | CPT/HCPCS: 99215; 93005; 93010 ==

== ENCOUNTER 2018-12-30 08:18 | Outpatient (CLI) | payer MEDICARE, SELFPAY | END 2018-12-30 08:38 | PROVIDERS: PCP Nurse Practitioner Family; Visit Provider Internal Medicine Interventional Cardiology | DX: R94.31 Abnormal electrocardiogram [ECG] [EKG] (principal); J44.9 Chronic obstructive pulmonary disease, unspecified; F17.210 Nicotine dependence, cigarettes, uncomplicated; I10 Essential (primary) hypertension | CPT/HCPCS: 99204; 99215 ==

== ENCOUNTER → 2019-01-21 10:43 | Outpatient (BNVA) | payer MEDICARE, SELFPAY | PROVIDERS: PCP Nurse Practitioner Family; Referring Provider Nurse Practitioner Family; Visit Provider Student in an Organized Health Care Education/Training Program | DX: Z47.89 Encounter for other orthopedic aftercare (principal); G56.21 Lesion of ulnar nerve, right upper limb; G56.03 Carpal tunnel syndrome, bilateral upper limbs ==

== ENCOUNTER → 2019-03-01 13:16 | Outpatient (BNVA) | payer MEDICARE, MEDICAID, SELFPAY | PROVIDERS: PCP Nurse Practitioner Family; Referring Provider Nurse Practitioner Family; Visit Provider Student in an Organized Health Care Education/Training Program | DX: G56.03 Carpal tunnel syndrome, bilateral upper limbs (principal); Z48.89 Encounter for other specified surgical aftercare; G56.21 Lesion of ulnar nerve, right upper limb ==

== ENCOUNTER → 2019-06-07 13:24 | Outpatient (BNVA) | payer MEDICARE, SELFPAY | PROVIDERS: PCP Nurse Practitioner Family; Referring Provider Nurse Practitioner Family; Visit Provider Student in an Organized Health Care Education/Training Program | DX: M43.17 Spondylolisthesis, lumbosacral region (principal); Z98.890 Other specified postprocedural states | CPT/HCPCS: 99213 ==

== ENCOUNTER 2019-07-13 10:52 | Outpatient (CLI) | payer MEDICARE, SELFPAY ==
--- NOTE | 2019-07-13 | DI.MRI_ITS ---
EXAM: MR CERVICAL SPINE WO CLINICAL HISTORY: H/O FUSION YEARS AGO, NOW UE SYMPTOMS, ? NEW RADICULOPATHY,M79.603,UPPEREXT TECHNIQUE: Multiplanar multisequence MRI of the cervical spine was performed without intravenous con trast. The exam is somewhat limited by patient motion. COMPARISON: MR lumbar spine wo from 08/13/2018 FINDINGS: BONES: Vertebral body heights are maintained. Alignment is normal. Bone marrow signal intensity is wi thin normal limits. CERVICAL CORD: Craniovertebral junction is unremarkable. The cervical cord is normal size and signal intensity. SOFT TISSUES: Unremarkable. C2-3: Mild disc bulging. C3-4: Mild disc bulging. C4-5: Posterolateral endplate osteophytes cause bilateral neural foraminal narrowing, left greater th an right. There is some effacement of the anterior CSF space. C5-6: Prior anterior fusion. C6-7: No disc herniation or bulge is identified. C7-T1: No disc herniation or bulge is identified. IMPRESSION: Anterior fusion at C5-6. Disc osteophytes at C4-5 cause bilateral neural foraminal narrowing. DATA REPOSITORY:
== END 2019-07-13 11:12 ==
PROVIDERS: PCP Nurse Practitioner Family; Visit Provider Neurological Surgery
DX: M54.12 Radiculopathy, cervical region (principal); M50.21 Other cervical disc displacement, high cervical region; M47.22 Other spondylosis with radiculopathy, cervical region; Z98.1 Arthrodesis status
CPT/HCPCS: 72141

== ENCOUNTER → 2019-07-19 12:29 | Outpatient (BNVA) | payer MEDICARE, SELFPAY | PROVIDERS: PCP Nurse Practitioner Family; Visit Provider Student in an Organized Health Care Education/Training Program | DX: G56.21 Lesion of ulnar nerve, right upper limb (principal); G56.03 Carpal tunnel syndrome, bilateral upper limbs; G56.22 Lesion of ulnar nerve, left upper limb | CPT/HCPCS: 99213 ==